=== PATIENT | female | born 1995 | race Caucasian/White ===

== ENCOUNTER 2024-08-03 11:37 | Emergency (ER) | payer OTHER, SELFPAY ==
[2024-08-03] VITALS (11 sets, daily range): BP systolic 107–133; BP diastolic 74–96; PULSE 77–92; RESP 13–24; TEMP 37; O2SAT 97–100
--- NOTE | ~2024-08-03 | XR_ITS ---
Clinical Indication: Chest pain PA and lateral views of the chest: Comparison: None Findings: The lungs are clear, without evidence of focal consolidation or pleural effusion. Cardiome diastinal silhouette is within normal limits. Bones and soft tissues are unremarkable. Impression: Normal chest. Reviewed, dictated and finalized at location . Impression: Normal chest.
--- NOTE | 2024-08-03 11:40 | ECG_ITS ---
Test Date: 2024-08-03 11:52:09 Measurements Intervals [place] Rate: 86 P: 46 LA: 158 QRS: 12 QRSD: 72 T: 27 QT: 362 QTc: 434 Interpretive Statements SINUS RHYTHM MINIMAL Q WAVES- INFERIOR LEADS CONSIDER ANTERIOR INFARCT, AGE INDETERMINATE BASELINE ARTIFACT- I, III, AVR, AVL, AVF, V4-V6 ABNORMAL ECG No previous ECG available for comparison Electronically Signed On 08-03-2024 12:53:14 CDT by Harshal Clark D.O.
--- NOTE | 2024-08-03 13:24 | ED.CHESTPAIN ---
HPI - Chest Pain General Chief Complaint: Chest Pain <Eri Loomis PA-C - Last Filed: 08/03/24 18:55> Stated Complaint: Chest pain-right side through to back <Eri Loomis PA-C - Last Filed: 08/03/24 18:55> Time Seen by Provider: 08/03/24 13:25 <Eri Loomis PA-C - Last Filed: 08/03/24 18:55> Focused HPI: This is a 28 year old female that presents to the ER for right sided chest pain, posterior shoulder pain. Worsened with breathing. Onset this morning when sitting on the cough working. Has been constant since. Reports some shortness of breath. She is not on control, no recent travel or surgery. No recent injuries. GENERAL: Well-appearing, well-nourished, and in no acute distress. HEAD: Normocephalic, atraumatic. CHEST: Clear to auscultation. ?No respiratory distress. HEART: Regular rate and rhythm.? NEURO: ?Alert and oriented x3. Patient screened in triage and initial orders placed.? ?Additional care and disposition to be based upon?diagnostic testing and treatment. <Eri Loomis PA-C - Last Filed: 08/03/24 18:55> Source: patient <Kye Snider MD - Last Filed: 08/03/24 16:13> Mode of arrival: ambulatory <Kye Snider MD - Last Filed: 08/03/24 16:13> History of Present Illness HPI narrative: 28-year-old with a history of type 1 diabetes here with a complains of back pain and chest pain. Patient states that she was sitting on the couch she had a sudden onset of back. Radiated to the front of her chest with mild shortness of breath. She denies any lifting heavy weights or trauma. No history of cough or fever or chills no previous history of CAD. And the time she got to the ER her pain has much improved. <Kye Snider MD - Last Filed: 08/03/24 16:13> MD complaint: chest pain <Kye Snider MD - Last Filed: 08/03/24 16:13> Onset (ago): hour(s) (1) <Kye Snider MD - Last Filed: 08/03/24 16:13> Timing of current episode: constant <Kye Snider MD - Last Filed: 08/03/24 16:13> Onset: during rest <Kye Snider MD - Last Filed: 08/03/24 16:13> Pain location: left chest <Kye Snider MD - Last Filed: 08/03/24 16:13> Pain radiation: right scapula <Kye Snider MD - Last Filed: 08/03/24 16:13> Severity: moderate <Kye Snider MD - Last Filed: 08/03/24 16:13> Quality: aching <Kye Snider MD - Last Filed: 08/03/24 16:13> Relieving factors: nothing <Kye Snider MD - Last Filed: 08/03/24 16:13> Exacerbating factors: nothing <Kye Snider MD - Last Filed: 08/03/24 16:13> Risk Factors Coronary artery disease risk factors: none <Kye Snider MD - Last Filed: 08/03/24 16:13> Related Data Home Medications: Home Medications ?Medication ?Instructions ?Recorded ?Confirmed ?Last Taken ?Type insulin lispro 100 unit/mL 1 sliding scale dose subcut TIDWM 03/13/19 03/13/19 Unknown History subcutaneous solution (Humalog U-100 Insulin) insulin lispro 100 unit/mL 19 unit subcut DAILY 03/13/19 03/13/19 Unknown History subcutaneous solution (Humalog U-100 Insulin) <Eri Loomis PA-C - Last Filed: 08/03/24 18:55> Allergies/Adverse Reactions: Allergies Allergy/AdvReac Type Severity Reaction Status Date / Time codeine Allergy Unknown Swelling Verified 08/03/24 11:39 of the Eye <Eri Loomis PA-C - Last Filed: 08/03/24 18:55> Review of Systems Review of Systems: All systems reviewed & are unremarkable except as noted in HPI and below <Kye Snider MD - Last Filed: 08/03/24 16:13> Constitutional: Constitutional: Reports no additional constitutional complaints <Kye Snider MD - Last Filed: 08/03/24 16:13> Eyes: Eyes: Reports no additional eye complaints <Kye Snider MD - Last Filed: 08/03/24 16:13> ENT: Reports system reviewed and no additional complaints, except as documented <Kye Snider MD - Last Filed: 08/03/24 16:13> Cardiovascular: Cardiovascular: Reports no additional cardiovascular complaints <Kye Snider MD - Last Filed: 08/03/24 16:13> Respiratory: Respiratory: Reports no additional respiratory complaints <Kye Snider MD - Last Filed: 08/03/24 16:13> Gastrointestinal: Gastrointestinal: Reports no additional gastrointestinal complaints <Kye Snider MD - Last Filed: 08/03/24 16:13> Musculoskeletal: Musculoskeletal: Reports no additional musculoskeletal complaints <Kye Snider MD - Last Filed: 08/03/24 16:13> Neurologic: Reports system reviewed and no additional complaints, except as documented <Kye Snider MD - Last Filed: 08/03/24 16:13> Psychiatric: Psychiatric: Reports no additional psychiatric complaints <Kye Snider MD - Last Filed: 08/03/24 16:13> PMFSH Past Medical History Medical History: Medical History DM I (diabetes mellitus, type I) GERD (gastroesophageal reflux disease) <Eri Loomis PA-C - Last Filed: 08/03/24 18:55> Surgical History Surgical History: Surgical History Status post tonsillectomy and adenoidectomy <Eri Loomis PA-C - Last Filed: 08/03/24 18:55> Family History Family History: Family History Mother Hypothyroidism Other Family history of arthritis Family history of cardiovascular disease Family history of hearing loss Family history of malignant neoplasm of urinary bladder Family history of migraine headaches Family history of osteoporosis Family history of thyroid disease Hypertension <Eri Loomis PA-C - Last Filed: 08/03/24 18:55> Social History Social History: Social History Social History: 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 She denies alcohol, tobacco, and drug use. She designates her parents as her surrogate decision makers and she wishes to be a full code. Smoking status: Never smoker Second hand tobacco smoke exposure: No Alcohol intake: current Substance use: never Spiritual care concerns: No Agree to blood products: Yes <Eri Loomis PA-C - Last Filed: 08/03/24 18:55> Exam Narrative: GENERAL: Well-appearing, well-nourished, and in no acute distress. HEAD: Normocephalic, atraumatic. EYES: PERRLA and EOMI. ENT: Nares clear, no rhinorrhea or epistaxis. Mucous membranes moist. NECK: Supple. CHEST: Clear to auscultation. No respiratory distress. HEART: Regular rate and rhythm. No murmur heard. Normal peripheral pulses. ABDOMEN: Soft, nontender, nondistended, normal active bowel sounds. EXTREMITIES: Normal range of motion. No edema. SKIN: Warm, dry, no rash. NEURO: No focal deficits. Alert and oriented x3. PSYCH: Normal mood and affect. <Kye Snider MD - Last Filed: 08/03/24 16:13> Course Course Emergency Course: Patient comfortably resting on the bed with apparent on the bedside. Informed her about the lab work, EKG and chest x-ray findings. Cause of her pain most likely musculoskeletal. Advised her to continue home medication take Tylenol ibuprofen for pain <Kye Snider MD - Last Filed: 08/03/24 16:13> Vital Signs Vital signs: Vital Signs Temperature 98.6 F 08/03/24 11:46 Pulse Rate 92 08/03/24 11:46 Respiratory Rate 24 H 08/03/24 11:46 Blood Pressure 133/96 H 08/03/24 11:46 Pulse Oximetry 99 08/03/24 11:46 Oxygen Delivery Room Air 08/03/24 11:46 Temperature 98.6 F 08/03/24 11:46 Pulse Rate 81 08/03/24 16:01 Respiratory Rate 18 08/03/24 16:01 Blood Pressure 116/80 08/03/24 16:01 Pulse Oximetry 98 08/03/24 15:46 Oxygen Delivery Room Air 08/03/24 13:50 <Eri Loomis PA-C - Last Filed: 08/03/24 18:55> Vital Signs Temperature 98.6 F 08/03/24 11:46 Pulse Rate 92 08/03/24 11:46 Respiratory Rate 24 H 08/03/24 11:46 Blood Pressure 133/96 H 08/03/24 11:46 Pulse Oximetry 99 08/03/24 11:46 Oxygen Delivery Room Air 08/03/24 11:46 Temperature 98.6 F 08/03/24 11:46 Pulse Rate 81 08/03/24 16:01 Respiratory Rate 18 08/03/24 16:01 Blood Pressure 116/80 08/03/24 16:01 Pulse Oximetry 98 08/03/24 15:46 Oxygen Delivery Room Air 08/03/24 13:50 <Kye Snider MD - Last Filed: 08/03/24 16:13> MDM - Chest Pain Differential Diagnosis Differential diagnosis: Likely unstable angina pectoris, atypical chest pain, costochondritis and chest pain <Kye Snider MD - Last Filed: 08/03/24 16:13> Medical Records Data Attestation: I reviewed the patient's medical records. <Kye Snider MD - Last Filed: 08/03/24 16:13> Lab Data Attestation: I reviewed the patient's lab results. <Kye Snider MD - Last Filed: 08/03/24 16:13> Result diagrams: 08/03/24 13:35 08/03/24 13:35 <Eri Loomis PA-C - Last Filed: 08/03/24 18:55> Labs: Lab Results 08/03/24 08/03/24 Range/Units 13:35 14:59 WBC 10.8 H (4.5-10.0) K/mm3 RBC 4.45 (4.2-5.4) M/mm3 Hgb 12.5 (12.0-15.0) g/dL Hct 40.5 (37.0-47.0) % MCV 91.0 (80-100) fl MCH 28.1 (26-34) pg MCHC 30.9 L (32-36) g/dl RDW 13.5 (11.5-14.5) % Plt Count 411 H (150-375) k/mm3 MPV 10.0 (7.4-10.4) fl Immature Gran % (Auto) 0.4 (0-0.5) % Neut % (Auto) 67.4 (45.5-73.1) % Lymph % (Auto) 20.8 (18.3-44.2) % [place] % (Auto) 7.7 (2.6-8.5) % Eos % (Auto) 3.3 (0-4.4) % Baso % (Auto) 0.4 (0.2-1.2) % Lymph # (Auto) 2.24 (0.9-3.2) K/mm3 [place] # (Auto) 0.8 H (0.1-0.6) K/mm3 Eos # (Auto) 0.4 H (0-0.3) K/mm3 Baso # (Auto) 0.0 (0.0-0.1) K/mm3 Abs Immat Gran (auto) 0.04 H (0.00-0.031) K/mm3 Absolute Neuts (auto) 7.3 H (1.3-6.7) K/mm3 Absolute Nucleated RBC 0.000 (0.0-0.012) K/mm3 Nucleated RBC % 0.0 (0.0-0.2) % PT 13.4 (11.1-14.7) Seconds INR 1.0 APTT 28.3 (22.3-36.8) Seconds D-Dimer 0.38 (<0.48) ug/mL Sodium 137 (137-145) mmol/L Potassium 3.9 (3.4-5.0) mmol/L Chloride 105 (98-107) mmol/L Carbon Dioxide 27 (22-30) mmol/L Anion Gap 5 (4-12) mmol/L BUN 9 D (7-17) mg/dL Creatinine 0.78 (0.7-1.0) mg/dL Estim Creat Clear Calc Not Reportable Estimated GFR > 60 (59 - ) Glucose 83 (65-110) mg/dL Calcium 9.0 (8.4-10.2) mg/dL Total Bilirubin 0.4 (0.2-1.3) mg/dL AST 30 (14-36) U/L ALT 27 (6-35) U/L Alkaline Phosphatase 110 (38-126) U/L Troponin I < 0.012 < 0.012 (0.000-0.034) ng/mL Total Protein 8.0 (6.3-8.2) g/dL Albumin 4.2 (3.5-5.1) g/dL Lipase 38 (23-300) U/L <Eri Loomis PA-C - Last Filed: 08/03/24 18:55> Lab Results 08/03/24 08/03/24 Range/Units 13:35 14:59 WBC 10.8 H (4.5-10.0) K/mm3 RBC 4.45 (4.2-5.4) M/mm3 Hgb 12.5 (12.0-15.0) g/dL Hct 40.5 (37.0-47.0) % MCV 91.0 (80-100) fl MCH 28.1 (26-34) pg MCHC 30.9 L (32-36) g/dl RDW 13.5 (11.5-14.5) % Plt Count 411 H (150-375) k/mm3 MPV 10.0 (7.4-10.4) fl Immature Gran % (Auto) 0.4 (0-0.5) % Neut % (Auto) 67.4 (45.5-73.1) % Lymph % (Auto) 20.8 (18.3-44.2) % [place] % (Auto) 7.7 (2.6-8.5) % Eos % (Auto) 3.3 (0-4.4) % Baso % (Auto) 0.4 (0.2-1.2) % Lymph # (Auto) 2.24 (0.9-3.2) K/mm3 [place] # (Auto) 0.8 H (0.1-0.6) K/mm3 Eos # (Auto) 0.4 H (0-0.3) K/mm3 Baso # (Auto) 0.0 (0.0-0.1) K/mm3 Abs Immat Gran (auto) 0.04 H (0.00-0.031) K/mm3 Absolute Neuts (auto) 7.3 H (1.3-6.7) K/mm3 Absolute Nucleated RBC 0.000 (0.0-0.012) K/mm3 Nucleated RBC % 0.0 (0.0-0.2) % PT 13.4 (11.1-14.7) Seconds INR 1.0 APTT 28.3 (22.3-36.8) Seconds D-Dimer 0.38 (<0.48) ug/mL Sodium 137 (137-145) mmol/L Potassium 3.9 (3.4-5.0) mmol/L Chloride 105 (98-107) mmol/L Carbon Dioxide 27 (22-30) mmol/L Anion Gap 5 (4-12) mmol/L BUN 9 D (7-17) mg/dL Creatinine 0.78 (0.7-1.0) mg/dL Estim Creat Clear Calc Not Reportable Estimated GFR > 60 (59 - ) Glucose 83 (65-110) mg/dL Calcium 9.0 (8.4-10.2) mg/dL Total Bilirubin 0.4 (0.2-1.3) mg/dL AST 30 (14-36) U/L ALT 27 (6-35) U/L Alkaline Phosphatase 110 (38-126) U/L Troponin I < 0.012 < 0.012 (0.000-0.034) ng/mL Total Protein 8.0 (6.3-8.2) g/dL Albumin 4.2 (3.5-5.1) g/dL Lipase 38 (23-300) U/L <Kye Snider MD - Last Filed: 08/03/24 16:13> Imaging Data Radiologist's impression: ITS Impressions Chest X-Ray 08/03/24 13:29 Impression: Normal chest. <Kye Snider MD - Last Filed: 08/03/24 16:13> ECG Data EKG #1: ECG completion date: 08/03/24 <Kye Snider MD - Last Filed: 08/03/24 16:13> ECG completion time: 11:52 <Kye Snider MD - Last Filed: 08/03/24 16:13> EKG Interpretation: normal rate (86), sinus rhythm, no ectopy, no ST changes, normal QRS, normal QT and no acute changes <Kye Snider MD - Last Filed: 08/03/24 16:13> Critical Care Time Critical Care Time Critical Care Time: No <Eri Loomis PA-C - Last Filed: 08/03/24 18:55> Discharge Plan Discharge Clinical Impression: Chest pain Qualifiers: Chest pain type: unspecified Qualified Code(s): R07.9 - Chest pain, unspecified <Eri Loomis PA-C - Last Filed: 08/03/24 18:55> Patient Disposition: Home <Eri Loomis PA-C - Last Filed: 08/03/24 18:55> Condition: Stable <Eri Loomis PA-C - Last Filed: 08/03/24 18:55> Instructions: Chest Pain (ED) <Eri Loomis PA-C - Last Filed: 08/03/24 18:55> Additional Instructions: Continue home medication, take Tylenol or Ibuprofen for pain, follow-up with your primary doctor <Eri Loomis PA-C - Last Filed: 08/03/24 18:55> Patient Language: [place] <Eri Loomis PA-C - Last Filed: 08/03/24 18:55> Prescriptions: No Action insulin lispro [Humalog U-100 Insulin] 100 unit/mL solution 19 unit subcut DAILY Rx Instructions: 19 UNITS BASAL RATE PER INSULIN PUMP insulin lispro [Humalog U-100 Insulin] 100 unit/mL solution 1 sliding scale dose subcut TIDWM Rx Instructions: 1 Unit per carb with meals <Eri Loomis PA-C - Last Filed: 08/03/24 18:55> Follow-up/Referrals: Papi,MD Cathryn [Non-Staff] - <Eri Loomis PA-C - Last Filed: 08/03/24 18:55> Time of Disposition: 16:12 <Eri Loomis PA-C - Last Filed: 08/03/24 18:55> 16:12 <Kye Snider MD - Last Filed: 08/03/24 16:13>
--- OUTSIDE RECORDS SUMMARY | 2024-08-03 13:35 | XMS_ITS | Continuity of Care Document ---
Author Organization [facility] Address [address] [place] [address] [place] [address] Phone Care Team Providers Care Branch Director Name Role Phone Chang OD, Mart Unavailable Unavailable Procedures Procedure Date Eye Exam, New Patient Refraction SV Poly Carb Sph +/- 7.12 To +/- 20 D Ju Vision Svcs Frames Purchases Lens-Index 1.54-1.79 Glass Advance Directives Directive Yes / No Effective Date File Name No Information Encounters Encounter Description Practice Location Reason(s) For Visit Diagnoses Date Provider Providers Copied on Encounter [facility], [address] [place] [address] [address], [place], [place], [id number], [place] tel:[phone] [facility] No Information 0 Chang OD Mart. [address] [facility] [address] [facility] , [address], [place], [address], [place]. tel:[phone] [facility], [address] [place] [address] [address], [place], [place], [id number], [place] tel:[phone] [facility] No Information [address] [facility] . [address], [address], [place], [place], [id number], [place]. tel:[phone] Referring Provider: Mart Chang OD Natanael, [address], [place], [address]. tel:[phone] Provider: Liam Baer, [address] [facility], [place], [address]. tel:[phone] Family History Family Member Type Diagnosis Age At Onset No Information Payers Payer name Insurance type Covered libertarian ID Authormagaly bishop(s) [facility] [id number] Social History Type Description Quantity Date Captured Comments Sex Female Smoking Status No Information Chief Complaint And Reason For Visit No Information Reason For Referral Reason For Referral No Information History Of Present Illness Encounter Date Complaint History Of Prese nt Illness No Information Functional Status Date Functional Assessmen t No Information Instructions Date Instruction Additional Infor mation No Information Assessments Type Assessment Date No Information Patient Care Teams Name Effective Dates (start - stop) Status Members No Information
--- OUTSIDE RECORDS SUMMARY | 2024-08-03 13:35 | XMS_ITS | Clinical Summary ---
Author Organization [facility] Address [facility] [place] [address] Care Team Providers Care Photographic Plate Maker Name Role Phone Noemi Gilbert DO Primary Care Provider [phone] Allergies Active Allergy Reactions Criticality Noted Date Comments Jai Hanna 10/31/2023 Social History Tobacco Use Types Packs/Day Years Used Date Smoking Tobacco: Never Assessed Comments Unknown Sex and Gender Information Value Date Recorded Sex Assigned at Not on file Legal Sex Female 9:18 PM CDT Gender Identity Not on file Sexual Orientation Not on file Last Filed Vital Signs Vital Sign Reading Time Taken Comments Blood Pressure 116/80 10/31/2023 11:18 PM CDT Pulse 94 10/31/2023 11:18 PM CDT Temperature 36.9 C (98.5 F) 10/31/2023 9:26 PM CDT Respiratory Rate 16 10/31/2023 11:18 PM CDT Oxygen Saturation 100% 10/31/2023 11:18 PM CDT Inhaled Oxygen Concentration - - Weight 72.7 kg (160 lb 4.4 oz) 10/31/2023 9:26 P M CDT Height 149.9 cm (4' 11 ) 10/31/2023 9:26 PM CDT Body Mass Index 32.37 10/31/2023 9:26 PM CDT Plan of Treatment Health Maintenance Due Date Last Done Comments Annual Physical 2000 Hepatitis C 08/16/2015 DTaP, Tdap and Td Vaccines (7 - Td or Tdap) 08/30/2018 08/30/2008, 07/28/2002, 02/28/1999, Additional history exists COVID-19 Vaccine ( season) 2023 07/22/2020 Cervical Cancer Screening Pap Smear (Age 21 to 29) Every 3 Years 04/03/2026 04/03/2023 Cervical Cancer Screening 04/03/2026 Hepatitis B Vaccines Completed 08/30/2008, 05/19/1998, 1997, Additional history exists HPV Vaccines Completed 04/13/2013, 11/27, 10/02/2011 Meningococcal Vaccine Completed 05/14/2014, 012 Meningococcal B Vaccine Aged Out No l onger eligible based on patient's age to complete this topic Pneumococcal Vaccine: Pediatrics (0 to 5 Years) and At-Risk Patients (6 to 64 Years) Aged Out No longer eligible based on patient's age to complete this topic RSV Immunizations Under 20 Months Aged Out No longer eligible based on patient's age to complete this topic Insurance [facility] Care Teams Photographic Plate Maker Relationship Specialty Start Date End Date Noemi Gilbert DO [address] [address] PCP - General INTERNAL MEDICINE 10/31/23
--- OUTSIDE RECORDS SUMMARY | 2024-08-03 13:35 | XMS_ITS | Referral Summary ---
Author Organization [facility] C Address [address] [place] [address] Care Team Providers Care Abrasive Grader Name Role Phone No, Physician Primary Care Provider Cathryn Turpin MD Unavailable [phone] Encounters Date Type Department Care Team Description 07/07/2024 1:00 PM CDT Office Visit [facility] Endocrinology Metabolism and Lipid [address] [facility] 2nd Floor [address] [place] [phone] Noemi Gilbert DO Other hyperlipidemia (Primary Dx); Type 1 diabetes mellitus without complication (HCC); Insulin pump in place; Proteinuria, unspecified type; PCOS (polycystic ovarian syndrome); Goiter 07/05/2024 Results Follow-Up [facility] Endocrinology Metabolism and Lipid [address] [facility] 2nd Floor [address] [place] [phone] Noemi Gilbert DO 07/02/2024 Orders Only [facility] Endocrinology Metabolism and Lipid [address] [place] [phone] Noemi Alba RMA Type 1 diabetes mellitus without complication (HCC) (Primary Dx); Other hyperlipidemia; PCOS (polycystic ovarian syndrome); Proteinuria, unspecified type from Last 3 Months Allergies Active Allergy Reactions Criticality Noted Date Comments Codeine Hives Medium 10/31/2023 Medications acetone, urine, test (acetone, urine, test) strip Test if BS is greater than 200 100 strip 11 9 Active ONETOUCH VERIO strip 0 9 Active glucagon (glucagon) 1 mg kit 6 Active blood-glucose transmitter (Dexcom G6 Transmitter) device Use as directed to check blood glucose; change every 90d 1 each 1 3 Active blood-glucose sensor (Dexcom G7 Sensor) device Active insulin glargine (LANTUS) 100 unit/mL (3 mL) pen for injection Use in case of pump failure, MDD 30 units 15 mL 1 4 Active insulin lispro (HumaLOG) 100 unit/mL vial for injection INJECT 60 UNITS UNDER THE SKIN DAILY VIA INSULIN PUMP 50 mL 1 4 Active metFORMIN XR (GLUCOPHAGE XR) 500 mg 24 hr tablet Take 2 tablets (1,000 mg total) by mouth daily 60 tablet 6 5 07/09/19 26 Active PNV no.95/ferrous fum/folic ac ( ORAL) Take by mouth 07/08/19 25 Discontinu ed(Therapy completed) aspirin 81 mg enteric coated tablet Take 1 tablet (81 mg total) by mouth daily 30 tablet 11 4 07/08/19 25 Discontinu ed(Therapy completed) Active Problems Problem Noted Date Diagnosed Date Missed with d emise before 20 completed weeks of gestation 03/13/2024 Missed 03/09/2024 Influenza vaccination declined 01/21/2024 Anxiety 04/03/2023 Overview (01/31/2024): Current regimen: History of anxiety, specifically related to poor glycemic control as well as car rides, currently well managed not on medications Counseling 01/30/2024: Anxiety disorders affect 1 in 5 patients and can cause significant functional impairment. Patients with under treated anxiety have a higher risk of depression. They also have a higher risk of , low weight, and behavioral challenges in offspring. Regular follow-up with a mental health provider is recommended throughout and . Plan: [] Monitor mood every visit PCOS (polycystic ovarian syndrome) 04/03/2023 Assessment & Plan (01/14/2024 11:04 AM CDT): >>ASSESSMENT AND PLAN FOR IRREGULAR PERIODS/MENSTRUAL CYCLES WRITTEN ON 04/03/2023 6:41 PM BY EMILY CASTELLANOS MD Change period tracker application to YONIS and input all data since 2020 when she came off OCP. Check labs as average cycle length is 35 days. RTO to discuss labs and discuss timing of intercourse to achieve . May need clomid for ovulation induction. Assessment & Plan (01/14/2024 11:04 AM CDT): >>ASSESSMENT AND PLAN FOR IRREGULAR PERIODS/MENSTRUAL CYCLES WRITTEN ON 05/30/2023 8:39 PM BY EMILY CASTELLANOS MD She is here to discuss lab results. I have not received lab results. States that she had them drawn day after our last visit. CW to obtain labs from [email or web address]. RTO for [employer] ARTISTIC DIRECTOR US and FU with me. Discussed need for medroxyprogesterone to induce withdrawal bleed. Discussed possible need for ovulation induction with clomid. Assessment & Plan (01/14/2024 11:04 AM CDT): >>ASSESSMENT AND PLAN FOR PCOS (POLYCYSTIC OVARIAN SYNDROME) WRITTEN ON 06/24/2023 7:57 PM BY EMILY CASTELLANOS MD See above. >>ASSESSMENT AND PLAN FOR IRREGULAR PERIODS/MENSTRUAL CYCLES WRITTEN ON 06/24/2023 7:54 PM BY EMILY CASTELLANOS MD Discussed labs and history consistent with PCOS. It was explained that the diagnosis need only 2 of following 3 symptoms: infrequent menses, polycystic ovaries on US and clinical signs of excess androgens. Currently taking medroxyprogesterone 10 mg po daily for 10 days. Withdrawal bleed should begin within one week of the completion of the medication. We discussed the frequent need for ovulation induction to aid in conception, and briefly reviewed some options to treat irregular or menstrual cycles, and protect the endometrial lining including as needed progesterone challenge for greater than 3 months with no menses, regulating forms of hormonal contraception, Depo-Provera and progesterone releasing intrauterine devices. For now she wants to hold on and focus on weight loss to improve fertility outcomes. Diabetes mellitus type 1 12/26/2006 Overview (03/05/2024): History Diagnosed age 11 History of DKA in teenage years Last hemoglobin A1C: 7.1% (11/05/23), repeat ordered Pre- regimen: Metformin 500 q day. Tandem insulin pump Pre- pump settings: Time Basal Rate ISF ICR BG Target Insulin Duration 0000 0.90 35 1:5 100 0600 0.925 35 1:5 100 1100 0.90 35 1:4 100 1600 0.90 45 1:3 100 1800 0.80 55 1:5 100 Pre- TDD of insulin: 40 units Pre- weight: 160 lb CGM/pump login [employer] Single Sign On (Rev[employer]ut) Username/email: [email or web address] Password: [email or web address] Current regimen: 02/26/2024 Met with DE 02/09 and she is in sleep mode 19/11 Time Basal Rate ISF ICR BG Target Duration 0000 0.90 30 1:5 110 4 0600 0.925 30 4.5 110 4 1100 0.925 30 3.5 > 3 110 4 1600 0.925 35 1:3 110 4 1800 0.925 45 1:5 110 4 Counseled 02/18 Plan - Physician adjusting insulin dosage: Endocrinology, however patient desires MFM to manage. Plan for remote pump monitoring [x] Counseling performed [x] Diabetes education, has meeting with diabetes education for nutrition in one week [x] Recommend weekly review of BG/insulin data to adjust insulin dosing, plan for remote monitoring by MFM [x] Glucagon prescribed [x] Referral to ophthalmology for comprehensive eye exam [x] Baseline CMP, UPC, -ordered 01/30; wnl on 01/30 [x] A1c q Trimester, ordered [x] First trimester TSH, ordered by director of therapy services [] ASA starting at 12 weeks gestation, discussed, rx sent [x] Baseline EKG: Reviewed by Dr. Wisdom- nothing further to do---- consider maternal TTE [] Early anatomy in late first trimester ordered [] Specialized anatomy ultrasound at 18-20 weeks ordered [] echocardiogram at 20-22 weeks ordered [] Serial growth scans starting at 24 weeks [] Twice weekly testing starting at 32 weeks [] insulin plan by 32 weeks [] Delivery at 39 0/7-39 6/7 (36 0/7 to 38 6/7 with vascular complications or poorly controlled) Assessment & Plan (01/21/2024 12:18 PM CDT): Patient reports struggling with blood sugar levels since becoming , with frequent highs and lows. -Consult with Maternal Medicine (MFM) for management during . -I will reach out to director of therapy services to request sooner appointment for Eufemia, but I have also requested her to contact office for further management of blood sugar levels during . -Check blood sugar levels regularly and adjust insulin doses as needed. Resolved Problems Problem Noted Date Diagnosed Date Resolved Date Obesity affecting , antepartum 01/30/2024 04/02/2024 Overview (01/31/2024): Pre- BMI: 33 Counseling 01/30/2024: Obesity in (BMI >30) is associated with increased risks. Maternal risks include preeclampsia, gestational diabetes and higher risk of section due to labor abnormalities. risks include anomalies, growth abnormalities (FGR and macrosomia) and stillbirth. Recommended weight gain is a total of 11-20 lbs, with 1-4 lbs in the 1st trimester and 0.5 lb/week in the 2nd and 3rd trimesters. Plan: [] Initiate aspirin 81 mg at 12 weeks for preeclampsia risk reduction [] Specialized anatomic survey at 20 weeks [] Consider growth ultrasounds every 4 weeks at 28 weeks [] 3rd trimester anesthesia consultation if BMI >/=50 [] Weekly testing at 34 weeks (BMI >/=40) and 37 weeks (BMI 35.0-39.9) Supervision of high-risk pre gnancy, first trimester 01/14/2024 04/02/2024 Overview (03/05/2024): [x] Full MFM Care; [x] Red Team JACE as of 02/05- email sent for the global 02/05 Referring Provider: Emily Castellanos [phone] [x] or Medicare Insurance [x] Dating Criteria: 7w4d US, YOGI 09/14/24 not consistent with LMP [x] Labs: Rh [O+], Ab [negative], Rubella [immune], HIV [non-reactive], HepBSAg [non-reactive], RPR [non-reactive], Hep C [non-reactive], Varicella [not done], GC/CT [not done], recommend completion of new OB lans [] Aneuploidy: too early for screen, recommend NIPT, patient plans to present in 4 weeks for NIPT- plan to draw 03/06 [] Carrier Screening: plan to draw 03/06 [x] CBC/Hgb: 11.9/38.1/plt 423 [] Early 1hr GTT (not indicated) [x] UCx: 01/21/24: 50,000-<100,000 colonies/mL Escherichia Coli, s/p treatment. Recommend JACE in 3 weeks [x] Pap: 04/03/23: NILM [] Flu Shot (Dec-Mar): declined [] COVID [x] LD ASA at 12 weeks, discussed. Patient to start after 12 weeks [] EPDS [ ]; PNBHS referral (if indicated) 2nd Tri Labs: [] Anatomy ultrasound: [] CBC/1hr gtt at 24-28wks: [] Tdap (27-36wks): [] Rhogam at 28 wks (if Rh neg): 3rd Tri Labs: [] CBC/HIV/RPR/T&S: [] GBS: [] GC/CT (if indicated): [] testing: [] RSV Counseling [] MOD: [] Place of delivery: [] Last clinic visit SVE: [] IOL start agent: [] Epidural: [] Blood Products [] Consents signed: [] Stop ASA [] MOC: [] Method of feeding: [] Receipt And Report Clerk: [] PP Depression Discussed: Assessment & Plan (02/05/2024 8:56 PM CDT): >>ASSESSMENT AND PLAN FOR POSITIVE TEST WRITTEN ON 01/14/2024 11:06 AM BY EMILY CASTELLANOS MD Patient presents with anxiety regarding the viability of her early due to a history of irregular periods and family history of miscarriages. Ultrasound shows a gestational sac but no yolk sac or pole, suggesting an earlier gestation than initially thought. No bleeding or cramping reported. -Draw blood for quantitative hCG, progesterone, and CBC today and repeat in two days to assess for appropriate rise in hCG. -Schedule follow-up ultrasound in one-two weeks to assess for interval growth and development of yolk sac and pole. -Provide patient with early information and reassurance regarding the commonality of early uncertainty and miscarriages. Encounter for other procreative management 04/03/2023 01/14/2024 Pain in joint of left shoulder 05/11/2020 01/14/2024 Subperiosteal hematoma 05/19/201304/03 Immunizations Immunization Administration Dates Next Due DTaP 07/28/2002, 9,02/03/1998,12/03,1997 HPV, Quadrivalent 04/13/2013,12/10/2011,10/02/19 12 Hep B, Adolescent or Pediatric 9,05/19/1998,1997,09/05,1997 HiB 02/28/1999, 8,1997,10/11 IPV 02/28/1999 Influenza, Quadrivalent, Spl it, Intramuscular 02/28/2020 Influenza, Quadrivalent, Spl it, Preservative Free, Intramuscular 03/23/2015,03/22/2014 Influenza, Trivalent, IM (MDV) 03/06/2012 Influenza, Trivalent, Preser vative Free, Intramuscular 02/26/2007 Influenza, Unspecified 01/28/2023,2012,03/06/2012,01/[address] (J&J) SARS-CoV-2 Vaccination 07/22/2020 Meningococcal MCV4P (Menactra) 05/14/2014,2011 OPV 1997,1997 PPD TEST 11/20/2020 Tdap 08/30/2008 Varicella 11/22/2008,08/30/2008 Social History Tobacco Use Types Packs/Day Years Used Date Smoking Tobacco: Never Passive Smoke Exposure: Never Smokeless Tobacco: Never PHQ-2 Answer Date Recorded PHQ-2 Total Score (If total score is 3 or more points, staff should administer the PHQ-9) 0 04/03/2023 Hunger Vital Sign Answer Date Recorded Within the past 12 months, y ou worried that your food would run out before you got the money to buy more. Never true 04/02/20 24 Within the past 12 months, t he food you bought just didn't last and you didn't have money to get more. Never true 04/02/2024 Personal Safety Answer Date Recorded Have you ever been in or are you currently in a harmful physical or emotional relationship or is someone making you feel afraid or unsafe? Denies 03/13/2024 Comments No Sex and Gender Information Value Date Recorded Sex Assigned at Not on file Legal Sex Female 2:10 PM DYNAMICS AX TECHNICAL ARCHITECT Gender Identity Female 05/17/2020 7:16 PM DYNAMICS AX TECHNICAL ARCHITECT Sexual Orientation Straight 05/17/2020 7: 16 PM DYNAMICS AX TECHNICAL ARCHITECT Occupation Industry Job Start Date Job End Date Works for [employer] Not on file Not on file Not on file Last Filed Vital Signs Vital Sign Reading Time Taken Comments Blood Pressure 128/87 07/07/2024 12:56 PM CDT Pulse 98 07/07/2024 12:56 PM CDT Temperature 36.8 C (98.3 F) 07/07/2024 12:56 PM CDT Respiratory Rate 18 04/02/2024 8:42 AM DYNAMICS AX TECHNICAL ARCHITECT Oxygen Saturation 98% 07/07/2024 12: 56 PM CDT Inhaled Oxygen Concentration - - Weight 78.8 kg (173 lb 12.8 oz) 025 12:56 PM CDT Height 149.9 cm (4' 11 ) 07/07/2024 12: 56 PM CDT Body Mass Index 35.1 07/07/2024 12:56 PM CDT Plan of Treatment Not on file Procedures Procedure Name Priority Date/Time Associated Diagnosis Comments TISSUE TRANSGLUTAMINASE, IGA Routine 07/03/2024 2:32 PM DYNAMICS AX TECHNICAL ARCHITECT ENDOMYSIAL ANTIBODY, IGA TITER Routine 07/03/2024 2:32 PM DYNAMICS AX TECHNICAL ARCHITECT IGA Routine 07/03/2024 2:32 PM DYNAMICS AX TECHNICAL ARCHITECT HEMOGLOBIN A1C Routine 07/03/2024 2:32 PM DYNAMICS AX TECHNICAL ARCHITECT Type 1 diabetes mellitus without complication (HCC) ALBUMIN CREATININE RATIO, URINE Routine 07/03/2024 2:32 PM DYNAMICS AX TECHNICAL ARCHITECT Type 1 diabetes mellitus without complication (HCC) Proteinuria, unspecified type COMPREHENSIVE METABOLIC PANEL Routine 07/03/2024 2:32 PM DYNAMICS AX TECHNICAL ARCHITECT Type 1 diabetes mellitus without complication (HCC) LIPID PANEL Routine 07/03/2024 2:32 PM DYNAMICS AX TECHNICAL ARCHITECT Other hyperlipidemia TSH Routine 07/03/2024 2:32 PM DYNAMICS AX TECHNICAL ARCHITECT Type 1 diabetes mellitus without complication (HCC) T4, FREE Routine 07/03/2024 2:32 PM DYNAMICS AX TECHNICAL ARCHITECT Type 1 diabetes mellitus without complication (HCC) VITAMIN B12 Routine 07/03/2024 2:32 PM DYNAMICS AX TECHNICAL ARCHITECT PCOS (polycystic ovarian syndrome) HEPATITIS C ANTIBODY Routine 01/21/2024 2:54 PM CDT Positive test PAP WITH REFLEX TO HIGH RISK HPV Routine 04/03/2023 4:28 PM DYNAMICS AX TECHNICAL ARCHITECT Routine Papanicolaou smear from Last 3 Months or Most Recently Relevant to Health Maintenance Results * Endomysial antibody, IgA titer (07/03/2024 2:32 PM DYNAMICS AX TECHNICAL ARCHITECT) Endomysial ab screen IgA w/reflex to titer NEGATIVE NEGATIVE [facility] 07/03/2024 2:32 PM DYNAMICS AX TECHNICAL ARCHITECT 07/03/2024 2:33 PM DYNAMICS AX TECHNICAL ARCHITECT Narrative [facility] - 07/08/2024 5:41 AM CDT FASTING:NO FASTING: NO us Noemi Gilbert DO LAB BLOOD ORDERABLES Fi nal Result [facility] [address] [place] [address] * Tissue transglutaminase IgA (TGG-IgA Ab) (07/03/2024 2:32 PM DYNAMICS AX TECHNICAL ARCHITECT) Tissue transglutaminase ab, IgA <1.0 U/mL [facility]phanieAmanda Valente Comment: Value Interpretation ----- <15.0 Antibody not detected > or = 15.0 Antibody detected 07/03/2024 2:32 PM DYNAMICS AX TECHNICAL ARCHITECT 07/03/2024 2:33 PM DYNAMICS AX TECHNICAL ARCHITECT Narrative [facility] - 07/08/2024 5:41 AM CDT FASTING:NO FASTING: NO Zappedyjaime Rutledgeme DO LAB BLOOD ORDERABLES Fi nal Result Performing Organization Address [facility] de Phone Number FusebillRobert Valente [address] [place] [address] * (ABNORMAL) Albumin Creatinine Ratio, Urine (07/03/2024 2:32 PM DYNAMICS AX TECHNICAL ARCHITECT) Pathologist [facility] Creatinine, ur 114 20 - 275 mg/dL [facility] Microalbumin, ur 7.4 See Note: mg/dL [facility] Comment: Reference Range: Reference Range Not established Microalbumin/creat ratio 65(H) <30 mg/g creat [facility] Comment: The ADA defines abnormalities in albumin excretion as follows: Albuminuria Category Result (mg/g creatinine) Normal to Mildly increased <30 Moderately increased 30-299 Severely increased > OR = 300 The ADA recommends that at least two of three specimens collected within a 3-6 month period be abnormal before considering a patient to be within a diagnostic category. Urine 07/03/2024 2:32 PM DYNAMICS AX TECHNICAL ARCHITECT 07/03/2024 2:33 PM DYNAMICS AX TECHNICAL ARCHITECT Narrative [facility] - 07/08/2024 5:41 AM CDT FASTING:NO FASTING: NO Zappedye Vladimir DO LAB URINE ORDERABLES Fi nal Result Performing Organization Address City/[facility]/ZIP Co de Phone Number [facility] [address] [facility] [place] [address] * TSH (07/03/2024 2:32 PM DYNAMICS AX TECHNICAL ARCHITECT) [facility] TSH 1.49 mIU/L [facility] Comment: Reference Range > or = 20 Years 0.40-4.50 Ranges First trimester 0.26-2.66 Second trimester 0.55-2.73 Third trimester 0.43-2.91 Blood 07/03/2024 2:32 PM DYNAMICS AX TECHNICAL ARCHITECT 07/03/2024 2:33 PM DYNAMICS AX TECHNICAL ARCHITECT Narrative [facility] - 07/08/2024 5:41 AM CDT FASTING:NO FASTING: NO Purfreshharme LAB BLOOD ORDERABLES Fi nal Result Performing Organization Address [facility] Co de Phone Number [facility] [address] [place] [address] * T4, free (07/03/2024 2:32 PM DYNAMICS AX TECHNICAL ARCHITECT) [facility] Free T4 1.3 0.8 - 1.8 ng/dL [facility] Blood 07/03/2024 2:32 PM DYNAMICS AX TECHNICAL ARCHITECT 07/03/2024 2:33 PM DYNAMICS AX TECHNICAL ARCHITECT Narrative [facility] - 07/08/2024 5:41 AM CDT FASTING:NO FASTING: NO Zappedye Vladimir DO LAB BLOOD ORDERABLES Fi nal Result Performing Organization Address [facility] Co de Phone Number [employer] [facility] [address] [place] [address] * (ABNORMAL) Hemoglobin A1c (07/03/2024 2:32 PM DYNAMICS AX TECHNICAL ARCHITECT) [facility] Hgb A1C 6.6(H) <5.7 % of total Hgb [facility] Comment: For someone without known diabetes, a hemoglobin A1c value of 6.5% or greater indicates that they may have diabetes and this should be confirmed with a follow-up test. For someone with known diabetes, a value <7% indicates that their diabetes is well controlled and a value greater than or equal to 7% indicates suboptimal control. A1c targets should be individualized based on duration of diabetes, age, comorbid conditions, and other considerations. Currently, no consensus exists regarding use of hemoglobin A1c for diagnosis of diabetes for children. Blood 07/03/2024 2:32 PM DYNAMICS AX TECHNICAL ARCHITECT 07/03/2024 2:33 PM DYNAMICS AX TECHNICAL ARCHITECT Narrative [facility] - 07/08/2024 5:41 AM CDT FASTING:NO FASTING: NO Noemi Gilbert DO LAB BLOOD ORDERABLES Fi nal Result [facility] [address] [place] [address] * IgA (07/03/2024 2:32 PM DYNAMICS AX TECHNICAL ARCHITECT) Immunoglobulin A 289 47 - 310 mg/dL [facility] 07/03/2024 2:32 PM DYNAMICS AX TECHNICAL ARCHITECT 07/03/2024 2:33 PM DYNAMICS AX TECHNICAL ARCHITECT Narrative [facility] - 07/08/2024 5:41 AM CDT FASTING:NO FASTING: NO Noemi Gilbert DO LAB BLOOD ORDERABLES Fi nal Result Performing Organization Address [facility] Co de Phone Number [email or web address] [address] [place] [address] * Vitamin B12 (07/03/2024 2:32 PM DYNAMICS AX TECHNICAL ARCHITECT) Pathologist [facility] Vitamin B12 853 200 - 1,100 pg/mL [facility] Blood 07/03/2024 2:32 PM DYNAMICS AX TECHNICAL ARCHITECT 07/03/2024 2:33 PM DYNAMICS AX TECHNICAL ARCHITECT Narrative [facility] - 07/08/2024 5:41 AM CDT FASTING:NO FASTING: NO Noemi Rutledgeme DO LAB BLOOD ORDERABLES Fi nal Result Performing Organization Address [facility] de Phone Number [email or web address] [address] [place] [address] * Lipid panel (07/03/2024 2:32 PM DYNAMICS AX TECHNICAL ARCHITECT) Pathologist [facility] Cholesterol 174 <200 mg/dL [facility] HDL 82 > OR = 50 mg/dL [facility]IORikki [facility] Triglycerides 47 <150 mg/dL Mikayla Lang LDL 79 mg/dL (calc) Mikayla [facility]ki Lang Comment: Reference range: <100 Desirable range <100 mg/dL for primary prevention; <70 mg/dL for patients with CHD or diabetic patients with > or = 2 CHD risk factors. LDL-C is now calculated using the Derrick calculation, which is a validated novel method providing better accuracy than the Friedewald equation in the estimation of LDL-C. Parth SS et al. LIAM. 2013;310(19): 3802-1395 (http://education.[employer]/faq/YPJ434) Chol/HDL ratio 2.1 <5.0 (calc) Mikayla Lang Non-HDL, (LDL+VLDL) 92 <130 mg/dL (calc) Mikayla Lang Comment: For patients with diabetes plus 1 major ASCVD risk factor, treating to a non-HDL-C goal of <100 mg/dL (LDL-C of <70 mg/dL) is considered a therapeutic option. Blood 07/03/2024 2:32 PM DYNAMICS AX TECHNICAL ARCHITECT 07/03/2024 2:33 PM DYNAMICS AX TECHNICAL ARCHITECT Narrative [facility] - 07/08/2024 5:41 AM CDT FASTING:NO FASTING: NO us Noemi Gilbert DO LAB BLOOD ORDERABLES Fi nal Result MIKAYLA [facility] [address] [place] [address] * Comprehensive metabolic panel (07/03/2024 2:32 PM DYNAMICS AX TECHNICAL ARCHITECT) [facility] Glucose 72 65 - 139 mg/dL Mikayla Lang Comment: Non-fasting reference interval BUN 17 7 - 25 mg/dL Mikayla Lang Creatinine 0.78 0.50 - 0.96 mg/dL Mikayla Lang eGFR 107 > OR = 60 mL/min/1.7 3m2 Mikayla [employer]ikki Lang BUN/creat ratio SEE NOTE: 6 - 22 (calc) Mikayla Lang Comment: Not Reported: BUN and Creatinine are within reference range. Sodium 140 135 - 146 mmol/L Mikayla [employer]Rikki Lang Potassium, pl 3.8 3.5 - 5.3 mmol/L [employer] Chloride 103 98 - 110 mmol/L [employer] Lang CO2 32 20 - 32 mmol/L [facility]Mia Lang Calcium 9.5 8.6 - 10.2 mg/dL Mikayla [employer]Mia Lang Protein, sr 7.1 6.1 - 8.1 g/dL Mikayla [employer]Mia Lang Albumin 4.0 3.6 - 5.1 g/dL [employer] Lang GLOBULIN 3.1 1.9 - 3.7 g/dL (calc) [facility] Lang Alb/glob ratio 1.3 1.0 - 2.5 (calc) [facility] Lang Bilirubin, total 0.3 0.2 - 1.2 mg/dL [employer] loretta Lang Alk phos 97 31 - 125 U/L [facility] loretta Lang AST 23 10 - 30 U/L [employer]ia Lang ALT (SGPT) 22 6 - 29 U/L [employer] loretta Lang Blood 07/03/2024 2:32 PM DYNAMICS AX TECHNICAL ARCHITECT 07/03/2024 2:33 PM DYNAMICS AX TECHNICAL ARCHITECT [facility] - 07/08/2024 5:41 AM CDT FASTING:NO FASTING: NO Noemi Gilbert DO LAB BLOOD ORDERABLES Fi nal Result [facility] [address] [place] [address] * Hepatitis C antibody Blood (01/21/2024 2:54 PM CDT) Hep C Ab Nonreactive Nonreactive Comment: Interpretive Data Nonreactive: Antibodies to HCV not detected. Does NOT exclude the possibility of recent exposure to HCV. Equivocal: Equivocal for HCV antibodies. Supplemental molecular testing will be automatically performed to determine infection status in accordance with current CDC screening recommendations. Reactive: Positive for HCV antibodies. This may represent current or past HCV infection. Supplemental molecular testing will be automatically performed to determine current infection status in accordance with current CDC screening recommendations. Interpretive data was last revised on 2019. Blood 01/21/2024 2:54 PM CDT 01/21/2024 2:54 PM CDT us Emily Castellanos MD LAB MICROBIOLOGY - [facility] ORDERABLES Final Result [facility] [address] Department [place] [address] * Pap with reflex to High Risk HPV and Genotyping (Cytology Component) (04/03/2023 4:28 PM DYNAMICS AX TECHNICAL ARCHITECT) Thin prep (Pap test) 04/03/2023 4:28 PM DYNAMICS AX TECHNICAL ARCHITECT 04/08/2023 9:40 AM DYNAMICS AX TECHNICAL ARCHITECT Narrative PATHOLOGY [facility] - 04/09/2023 3:55 PM DYNAMICS AX TECHNICAL ARCHITECT EPIC results best viewed via link to PDF [place] [id number] [facility], [place], [place] [address] Tele: Fina Mcpherson MD - Computer Forensic Examiner CYTOLOGY REPORT Note to Patients: This report may contain a detailed description of human tissue sent by a health care provider to the laboratory for pathologic evaluation. The content of this report is essential for diagnosis and may provide important critical findings. This information may be unfamiliar to patients to review without a medical professional present. It is advised that the patient review this report in the presence of a health care provider who can answer questions and explain the details. Patient Name: ROYCE ALEJANDRA Address: [address] [place] [address] Gender: F : 1995 (Age: 27) Service: Location: N : [id number] [facility] #: [id number] Patient Type: [facility] SPECIMEN Taken: 04/03/2023 Reported: 04/09/2023 Physician(s): Emily Castellanos M.D. FINAL DIAGNOSIS: SOURCE OF SPECIMEN - ThinPrep Pap w/ reflex HPV: STATEMENT OF ADEQUACY Source: Cervical/Endocervical - Satisfactory for interpretation - Endocervical /Transformation Zone component present - Case screened using computer assisted imaging technology GENERAL CATEGORIZATION: - Negative for intraepithelial lesion or malignancy xbb/04/09/2023 15:55RAMIREZ Brown (ASCP) Report Reviewed and Electronically Signed By RAMIREZ Brown (ASCP)Clerical Data Follow A; G0145 CLINICAL DIAGNOSIS AND HISTORY Last Menstrual Period: 02/26/23 REPORT IMAGES AND/OR SCANNED DOCUMENTS ONLY VIEWABLE IN PDF FORMAT The Pap test is a screening test used to aid in the detection of cervical cancer and its precursors. It should not be the sole means by which malignant and premalignant lesions are diagnosed. Both false negative and false positive results may occur. It also has poor sensitivity for the detection of endometrial lesions and should not be used to evaluate suspected endometrial abnormalities. For these reasons it is most important to obtain Pap tests at regular intervals, as recommended by your physician or nurse practitioner. us Emily Castellanos MD LAB CYTOLOGY ORDERABL ES Final Result PATHOLOGY [facility] Laboratory Receiving [address] [place], [place] [id number] from Last 3 Months or Most Recently Relevant to Health Maintenance Insurance [facility] CLAIMS [facility] CLAIMS Advance Directives For more information, please contact: [phone] * Full Code (Latest Code Status on File) Date Activated Date Inactivated Comments 03/13/2024 5:55 AM 03/13/2024 4:50 PM Full CPR i n case of cardiopulmonary arrest Care Teams Abrasive Grader Relationship Specialty Start Date End Date No, Physician PCP - General 01/10/23 Cathryn Turpin MD [address] [address] 01/10/23
--- OUTSIDE RECORDS SUMMARY | 2024-08-03 13:35 | XMS_ITS | Encounter Summary ---
Author Organization [facility] Facility Care Team Providers Care Verify Rep Name Role Phone Cathryn Turpin MD Primary Care Provider [phone] No, Physician Primary Care Provider [phone] Cathryn Turpin MD Unavailable [phone] Encounter Details Date Type Department Care Team (Latest Contact Info) Description 01/14/2018 Orders Only [facility]CON[facility] Provider, MD Ange [address] [place] [address] Social History Tobacco Use Types Packs/Day Years Used Date Smoking Tobacco: Never Assessed Comments Unknown Sex and Gender Information Value Date Recorded Sex Assigned at Not on file Legal Sex Female 2:10 PM RE ETCHER Gender Identity Female 05/17/2020 7:16 PM RE ETCHER Sexual Orientation Straight 05/17/2020 7: 16 PM RE ETCHER documented as of this encounter Plan of Treatment Not on file documented as of this encounter Procedures Procedure Name Priority Date/Time Associated Diagnosis Comments PROCEDURE - RESULT 01/14/2018 12 :00 AM CDT documented in this encounter Results * PROCEDURE - RESULT (01/14/2018 12:00 AM CDT) Narrative 01/14/2018 12:00 AM CDT Ordered by an unspecified provider. Historical Provider Final Res ult documented in this encounter Visit Diagnoses Not on filedocumented in this encounter Additional Health Concerns Infection Onset Date Last Indicated Resolved Time MRSA Comment:x1 04/08/2018 04/06/2018 12/14/2020 5:00 AM C DT documented as of this encounter Care Teams Verify Rep Relationship Specialty Start Date End Date Cathryn Turpin MD [address] [address] PCP - General 10/22/16 01/09/23 No, Physician PCP - General 01/10/23 Cathryn Turpin MD [address] [address] 01/10/23 documented as of this encounter
--- OUTSIDE RECORDS SUMMARY | 2024-08-03 13:35 | XMS_ITS | Clinical Summary ---
Author Organization [facility] Address [address] [place] [address] Care Team Providers Care Delivery Rn Name Role Phone No, Physician Primary Care Provider [phone] Cathryn Turpin MD Unavailable [phone] Allergies Active Allergy Reactions Criticality Noted Date [...] WRITTEN ON 04/03/2023 6:41 PM BY EMILY NOEL MD Change period tracker application to YONIS [...] WRITTEN ON 05/30/2023 8:39 PM BY EMILY NOEL MD She is here to discuss lab results. I have not received lab results. States that she had them drawn day after our last visit. CW to obtain labs from [employer] [facility]. RTO for DSP ENGINEER US and FU with me. Discussed need for medroxyprogesterone to induce withdrawal bleed. Discussed possible need for ovulation induction with clomid. Assessment & Plan (01/14/2024 11:04 AM CDT): >>ASSESSMENT AND PLAN FOR PCOS (POLYCYSTIC OVARIAN SYNDROME) WRITTEN ON 06/24/2023 7:57 PM BY EMILY NOEL MD See above. >>ASSESSMENT AND PLAN FOR IRREGULAR PERIODS/MENSTRUAL CYCLES WRITTEN ON 06/24/2023 7:54 PM BY EMILY NOEL MD Discussed labs and history consistent with [...] units Pre- weight: 160 lb CGM/pump login AutoESL Single Sign On (Clicktree) Username/email: [email or web address] Password: [email or web address] Current regimen: 02/26/2024 Met with LEONIE 02/09 and she is in sleep mode [...] ordered [x] First trimester TSH, ordered by hospital medical biller [] ASA starting at 12 weeks gestation, [...] during . -I will reach out to hospital medical biller to request sooner appointment for Eufemia, but [...] for the global 02/05 Referring Provider: Emily Noel [phone] [x] or Medicare Insurance [x] Dating Criteria: [...] [] MOC: [] Method of feeding: [] Metal Fence Erector: [] PP Depression Discussed: Assessment & Plan (02/05/2024 8:56 PM CDT): >>ASSESSMENT AND PLAN FOR POSITIVE TEST WRITTEN ON 01/14/2024 11:06 AM BY EMILY NOEL MD Patient presents with anxiety regarding the [...] left shoulder 05/11/2020 01/14/2024 Subperiosteal hematoma 05/19/201304/03 Encounters Date Type Department Care Team Description 07/07/2024 1:00 PM CDT Office Visit [facility] Endocrinology Metabolism and Lipid [address] [place] [address] Noemi Gilbert DO Other hyperlipidemia (Primary Dx); Type 1 diabetes mellitus without complication (HCC); Insulin pump in place; Proteinuria, unspecified type; PCOS (polycystic ovarian syndrome); Goiter 07/05/2024 Results Follow-Up [facility] Endocrinology Metabolism and Lipid [address] [facility] [address] [place] [address] Noemi Gilbert DO 07/02/2024 Orders Only [facility] Endocrinology Metabolism and Lipid [address] [facility] [address] [place] [address] Noemi Alba Natanael Type 1 diabetes mellitus without complication (HCC) (Primary Dx); Other hyperlipidemia; PCOS (polycystic ovarian syndrome); Proteinuria, unspecified type from Last 3 Months Immunizations Immunization Administration Dates Next Due DTaP 07/28/2002, 9,02/03/1998,12/03,1997 HPV, Quadrivalent 04/13/2013,12/10/2011,10/02/19 12 Hep B, Adolescent or Pediatric 9,05/19/1998,1997,09/05,1997 HiB 02/28/1999, 8,1997,10/11 IPV 02/28/1999 Influenza, Quadrivalent, Spl it, Intramuscular 02/28/2020 Influenza, Quadrivalent, Spl it, Preservative Free, Intramuscular 03/23/2015,03/22/2014 Influenza, Trivalent, IM (MDV) 03/06/2012 Influenza, Trivalent, Preser vative Free, Intramuscular 02/26/2007 Influenza, Unspecified 01/28/2023,2012,03/06/2012,01/25 Zipfit (J&J) SARS-CoV-2 Vaccination 07/22/2020 Meningococcal MCV4P (Menactra) 05/14/2014,2011 OPV 1995,1997 PPD TEST 11/20/2020 Tdap 08/30/2008 Varicella 11/22/2008,08/30/2008 Surgical History Surgery Date Site/Laterality Comments TONSILLECTOMY 04/29/2000 - 04/28/2001 KNEE SURGERY 04/29/2017 - 04/28/2018 Right Medical History Medical History Date Comments Subperiosteal hematoma 05/19/2013 Diabetes mellitus type 1 (HCC) 12/26/2006 Anxiety 04/03/2023 PCOS (polycystic ovarian syndrome) 04/03/2023 Family History Medical History Relation Name Comments No Known Problems Brother No Known Problems Father Scoliosis Mother Thyroid disease Mother Breast cancer Neg Hx Cervical cancer Neg Hx Colon cancer Neg Hx Ovarian cancer Neg Hx Uterine cancer Neg Hx Relation Name Status Comments Brother Alive Father Alive Mother Alive Social History Tobacco Use Types Packs/Day Years [...] on file Legal Sex Female 2:10 PM STEEL FLOOR PAN PLACING SUPERVISOR Gender Identity Female 05/17/2020 7:16 PM STEEL FLOOR PAN PLACING SUPERVISOR Sexual Orientation Straight 05/17/2020 7: 16 PM STEEL FLOOR PAN PLACING SUPERVISOR Occupation Industry Job Start Date Job End Date Works for [employer] Not on file Not on file Not on file Obstetrics History Para Term AB IAB SAB Ectopic Multiple Livin g Live Births 1 0 0 0 0 0 0 0 0 0 0 Date Outcome GA Total Labor Labor/2nd/3rd Weight Sex Type Anes PTL Twila A1 A5 Name Clin Last Filed Vital Signs Vital Sign Reading Time Taken Comments Blood Pressure 128/87 07/07/2024 12:56 PM CDT Pulse 98 07/07/2024 12:56 PM CDT Temperature 36.8 C (98.3 F) 07/07/2024 12:56 PM CDT Respiratory Rate 18 04/02/2024 8:42 AM STEEL FLOOR PAN PLACING SUPERVISOR Oxygen Saturation 98% 07/07/2024 12: 56 PM CDT Inhaled Oxygen Concentration - - Weight 78.8 kg (173 lb 12.8 oz) 025 12:56 PM CDT Height 149.9 cm (4' 11 ) 07/07/2024 12: 56 PM CDT Body Mass Index 35.1 07/07/2024 12:56 PM CDT Plan of Treatment Health Maintenance Due Date Last Done Comments Foot Exam 1995 Dilated Eye Exam 08/16/2007 Pneumococcal vaccine <65 (1 of 2 - PCV) 2016 DTaP/Tdap/Td Vaccine (7 - Td or Tdap) 08/30/2018 08/30/2008, 07/28/2002, 02/28/1999, Additional history exists Covid-19 Vaccine ( - 2023-2 5 season) 2023 07/22/2020 Cervical Cancer Screening 04/03/2024 04/03/2023 Depression Screening 04/03/2024 04/03/2023 Regular Well Visit/Exam 18-64 04/03/2024 04/03/2023 Hemoglobin A1C 01/03/2025 07/03/2024, 07/0 12/2023, 11/16/2022, Additional history exists Albumin Creatinine Ratio, Urine 07/03/2025 07/03/2024, 12/14/2019, 04/10/2019 Lipid Panel 07/03/2025 07/03/2024, 12/14/2019 TSH Level 07/03/2025 07/03/2024, 05/30, 12/14/2019, Additional history exists eGFR 07/03/2025 07/03/2024, 02/10/2024 Hepatitis B Screening Completed 08/30/2008 , 05/19/1998, 1997, Additional history exists Varicella Vaccines Completed 11/22/2008, 08/30/2008 HPV Vaccines Completed 04/13/2013, 11/27, 10/02/2011 Hepatitis C Screening Completed 01/21/2024 Influenza Vaccine Completed 02/11/2024, , 02/28/2020, Additional history exists Procedures Procedure Name Priority Date/Time Associated Diagnosis Comments TISSUE TRANSGLUTAMINASE, IGA Routine 07/03/2024 2:32 PM STEEL FLOOR PAN PLACING SUPERVISOR ENDOMYSIAL ANTIBODY, IGA TITER Routine 07/03/2024 2:32 PM STEEL FLOOR PAN PLACING SUPERVISOR IGA Routine 07/03/2024 2:32 PM STEEL FLOOR PAN PLACING SUPERVISOR HEMOGLOBIN A1C Routine 07/03/2024 2:32 PM STEEL FLOOR PAN PLACING SUPERVISOR Type 1 diabetes mellitus without complication (HCC) ALBUMIN CREATININE RATIO, URINE Routine 07/03/2024 2:32 PM STEEL FLOOR PAN PLACING SUPERVISOR Type 1 diabetes mellitus without complication (HCC) Proteinuria, unspecified type COMPREHENSIVE METABOLIC PANEL Routine 07/03/2024 2:32 PM STEEL FLOOR PAN PLACING SUPERVISOR Type 1 diabetes mellitus without complication (HCC) LIPID PANEL Routine 07/03/2024 2:32 PM STEEL FLOOR PAN PLACING SUPERVISOR Other hyperlipidemia TSH Routine 07/03/2024 2:32 PM STEEL FLOOR PAN PLACING SUPERVISOR Type 1 diabetes mellitus without complication (HCC) T4, FREE Routine 07/03/2024 2:32 PM STEEL FLOOR PAN PLACING SUPERVISOR Type 1 diabetes mellitus without complication (HCC) VITAMIN B12 Routine 07/03/2024 2:32 PM STEEL FLOOR PAN PLACING SUPERVISOR PCOS (polycystic ovarian syndrome) HEPATITIS C ANTIBODY Routine 01/21/2024 2:54 PM CDT Positive test PAP WITH REFLEX TO HIGH RISK HPV Routine 04/03/2023 4:28 PM STEEL FLOOR PAN PLACING SUPERVISOR Routine Papanicolaou smear from Last 3 Months or Most Recently Relevant to Health Maintenance Results * Endomysial antibody, IgA titer (07/03/2024 2:32 PM STEEL FLOOR PAN PLACING SUPERVISOR) Endomysial ab screen IgA w/reflex to titer NEGATIVE NEGATIVE [facility] 07/03/2024 2:32 PM STEEL FLOOR PAN PLACING SUPERVISOR 07/03/2024 2:33 PM STEEL FLOOR PAN PLACING SUPERVISOR Narrative [facility] - 07/08/2024 5:41 AM CDT FASTING:NO FASTING: NO Noemi Gilbert DO LAB BLOOD ORDERABLES Fi nal Result Performing Organization Address [facility] Co de Phone Number [facility] [address] [place] [address] * Tissue transglutaminase IgA (TGG-IgA Ab) (07/03/2024 2:32 PM STEEL FLOOR PAN PLACING SUPERVISOR) Pathologist [facility] Tissue transglutaminase ab, IgA <1.0 U/mL [facility] Comment: Value Interpretation ----- <15.0 Antibody not detected > or = 15.0 Antibody detected 07/03/2024 2:32 PM STEEL FLOOR PAN PLACING SUPERVISOR 07/03/2024 2:33 PM STEEL FLOOR PAN PLACING SUPERVISOR Narrative [facility] - 07/08/2024 5:41 AM CDT FASTING:NO FASTING: NO Noemi Gilbert LAB BLOOD ORDERABLES nal Result Performing Organization Address [facility] de Phone Number [facility] [address] [place] [address] * (ABNORMAL) Albumin Creatinine Ratio, Urine (07/03/2024 2:32 PM STEEL FLOOR PAN PLACING SUPERVISOR) [facility] Creatinine, ur 114 20 - 275 mg/dL [...] a diagnostic category. Urine 07/03/2024 2:32 PM STEEL FLOOR PAN PLACING SUPERVISOR 07/03/2024 2:33 PM STEEL FLOOR PAN PLACING SUPERVISOR Narrative [facility] - 07/08/2024 5:41 AM CDT FASTING:NO FASTING: NO Wireless [employer] Travee LAB URINE ORDERABLES Fi nal Result Performing Organization Address [facility] Co de Phone Number [facility] [address] [place] [address] * TSH (07/03/2024 2:32 PM STEEL FLOOR PAN PLACING SUPERVISOR) [facility] TSH 1.49 mIU/L [facility] Comment: Reference Range > or = 20 Years 0.40-4.50 Ranges First trimester 0.26-2.66 Second trimester 0.55-2.73 Third trimester 0.43-2.91 Blood 07/03/2024 2:32 PM STEEL FLOOR PAN PLACING SUPERVISOR 07/03/2024 2:33 PM STEEL FLOOR PAN PLACING SUPERVISOR Narrative [facility] - 07/08/2024 5:41 AM CDT FASTING:NO FASTING: NO Noemi Sveta Travee LAB BLOOD ORDERABLES Fi nal Result Performing Organization Address [facility] de Phone Number [facility] [address] [place] [address] * T4, free (07/03/2024 2:32 PM STEEL FLOOR PAN PLACING SUPERVISOR) [facility] Free T4 1.3 0.8 - 1.8 ng/dL [facility] Blood 07/03/2024 2:32 PM STEEL FLOOR PAN PLACING SUPERVISOR 07/03/2024 2:33 PM STEEL FLOOR PAN PLACING SUPERVISOR Narrative [facility] - 07/08/2024 5:41 AM CDT FASTING:NO FASTING: NO Noemi Zbirdme [place] (Circle[employer]) LAB BLOOD ORDERABLES Fi nal Result Performing Organization Address [facility] Co de Phone Number [facility] [address] [place] [address] * (ABNORMAL) Hemoglobin A1c (07/03/2024 2:32 PM STEEL FLOOR PAN PLACING SUPERVISOR) [facility] Hgb A1C 6.6(H) <5.7 % of total Hgb [facility] Comment: For someone without known diabetes, a [...] diabetes for children. Blood 07/03/2024 2:32 PM STEEL FLOOR PAN PLACING SUPERVISOR 07/03/2024 2:33 PM STEEL FLOOR PAN PLACING SUPERVISOR Narrative [facility] - 07/08/2024 5:41 AM CDT FASTING:NO FASTING: NO Noemi Sveta Vladimir DO LAB BLOOD ORDERABLES Fi nal Result [facility] [address] [place] [address] * IgA (07/03/2024 2:32 PM STEEL FLOOR PAN PLACING SUPERVISOR) Immunoglobulin A 289 47 - 310 mg/dL [facility] 07/03/2024 2:32 PM STEEL FLOOR PAN PLACING SUPERVISOR 07/03/2024 2:33 PM STEEL FLOOR PAN PLACING SUPERVISOR Narrative [facility] - 07/08/2024 5:41 AM CDT FASTING:NO FASTING: NO Noemi Gilbert DO LAB BLOOD ORDERABLES Fi nal Result Performing Organization Address City/[facility]/ZIP Co de Phone Number [facility] [address] [place] [address] * Vitamin B12 (07/03/2024 2:32 PM STEEL FLOOR PAN PLACING SUPERVISOR) Vitamin B12 853 200 - 1,100 pg/mL [facility] Blood 07/03/2024 2:32 PM STEEL FLOOR PAN PLACING SUPERVISOR 07/03/2024 2:33 PM STEEL FLOOR PAN PLACING SUPERVISOR Narrative [facility] - 07/08/2024 5:41 AM CDT FASTING:NO FASTING: NO Noemi Svetajaime Rutledgeme DO LAB BLOOD ORDERABLES Fi nal Result [facility] [address] [place] [address] * Lipid panel (07/03/2024 2:32 PM STEEL FLOOR PAN PLACING SUPERVISOR) Cholesterol 174 <200 mg/dL Mikayla Lang HDL 82 > OR = 50 mg/dL Mikayla AncestryRikki Lang Triglycerides 47 <150 mg/dL Mikayla Lang LDL 79 mg/dL (calc) Mikayla Lang Comment: Reference range: <100 Desirable range <100 mg/dL for primary prevention; <70 mg/dL for patients with CHD or diabetic patients with > or = 2 CHD risk factors. LDL-C is now calculated using the Derrick calculation, which is a validated novel method providing better accuracy than the Friedewald equation in the estimation of LDL-C. Parth PATTERSON et al. LIAM. 2013;310(19): 1056-1659 (http://education.[employer]/faq/BEA747) Chol/HDL ratio 2.1 <5.0 (calc) Mikayla Lang Non-HDL, (LDL+VLDL) 92 <130 mg/dL (calc) Mikayla AncestryRikki Lang Comment: For patients with diabetes plus 1 major ASCVD risk factor, treating to a non-HDL-C goal of <100 mg/dL (LDL-C of <70 mg/dL) is considered a therapeutic option. Blood 07/03/2024 2:32 PM STEEL FLOOR PAN PLACING SUPERVISOR 07/03/2024 2:33 PM STEEL FLOOR PAN PLACING SUPERVISOR Narrative [facility] - 07/08/2024 5:41 AM CDT FASTING:NO FASTING: NO us Noemi Gilbert DO LAB BLOOD ORDERABLES Fi nal Result MIKAYLA [facility]ifts[facility] Lang [address] [place] [address] * Comprehensive metabolic panel (07/03/2024 2:32 PM STEEL FLOOR PAN PLACING SUPERVISOR) Glucose 72 65 - 139 mg/dL Mikayla Lang Comment: Non-fasting reference interval BUN 17 7 - 25 mg/dL Mikayla Lang Creatinine 0.78 0.50 - 0.96 mg/dL Mikayla Lang eGFR 107 > OR = 60 mL/min/1.7 3m2 [facility] BUN/creat ratio SEE NOTE: 6 - 22 (calc) Mikayla Ancestry-Mia Lang Comment: Not Reported: BUN and Creatinine are within reference range. Sodium 140 135 - 146 mmol/L Mikayla Ancestry-Mia Lang Potassium, pl 3.8 3.5 - 5.3 mmol/L Mikayla [facility]estry-Mia Lang Chloride 103 98 - 110 mmol/L [facility] CO2 32 20 - 32 mmol/L [facility] Calcium 9.5 8.6 - 10.2 mg/dL Mikayla Ancestry-Mia Lang Protein, sr 7.1 6.1 - 8.1 g/dL [facility] Albumin 4.0 3.6 - 5.1 g/dL Mikayla Ancestry-Mia Lang GLOBULIN 3.1 1.9 - 3.7 g/dL (calc) Mikayla Rutledge-Mia Lang Alb/glob ratio 1.3 1.0 - 2.5 (calc) DemibooksMia Lang Bilirubin, total 0.3 0.2 - 1.2 mg/dL Mikayla Canary CalendarMia Lang Alk phos 97 31 - 125 U/L Mikayla Ancestry-Mia Lang AST 23 10 - 30 U/L DemibooksiMa Lang ALT (SGPT) 22 6 - 29 U/L DemibooksMia Lang Blood 07/03/2024 2:32 PM STEEL FLOOR PAN PLACING SUPERVISOR 07/03/2024 2:33 PM STEEL FLOOR PAN PLACING SUPERVISOR Narrative [facility] - 07/08/2024 5:41 AM CDT FASTING:NO FASTING: NO us Noemi Gilbert DO LAB BLOOD ORDERABLES Fi nal Result MIKAYLA Marinelli [facility] [address] [place] [address] * Hepatitis C antibody Blood (01/21/2024 2:54 [...] 2:54 PM CDT 01/21/2024 2:54 PM CDT Emily Noel MD LAB MICROBIOLOGY - [facility] ORDERABLES Final Result [facility] [address] Department [place] [address] * Pap with reflex to High Risk HPV and Genotyping (Cytology Component) (04/03/2023 4:28 PM STEEL FLOOR PAN PLACING SUPERVISOR) Thin prep (Pap test) 04/03/2023 4:28 PM STEEL FLOOR PAN PLACING SUPERVISOR 04/08/2023 9:40 AM STEEL FLOOR PAN PLACING SUPERVISOR Narrative PATHOLOGY [facility] - 04/09/2023 3:55 PM STEEL FLOOR PAN PLACING SUPERVISOR EPIC results best viewed via link to PDF [id number] [place], [place] [address] Tele: Fina Mcpherson MD - Instrument Assembly Supervisor CYTOLOGY REPORT Note to Patients: This report [...] and explain the details. Patient Name: ROYCE GREER Address: [address] [place] [address] Gender: F : 1995 (Age: 27) Service: Location: [facility] #: [id number] Patient Type: [facility] SPECIMEN Taken: 04/03/2023 Reported: 04/09/2023 Physician(s): Emily Noel M.D. FINAL DIAGNOSIS: SOURCE OF SPECIMEN - ThinPrep Pap w/ reflex HPV: STATEMENT OF ADEQUACY Source: Cervical/Endocervical - Satisfactory for interpretation - Endocervical /Transformation Zone component present - Case screened using computer assisted imaging technology GENERAL CATEGORIZATION: - Negative for intraepithelial lesion or malignancy xbb/04/09/2023 15:55RAMIREZ Brown (ASCP) Report Reviewed and Electronically Signed By RAIMREZ Brown (ASCP)Clerical Data Follow A; G0145 CLINICAL [...] recommended by your physician or nurse practitioner. Emily Noel MD LAB CYTOLOGY ORDERABL ES Final Result [facility] Laboratory Receiving [address] [place], [place] [id number] from Last 3 Months or Most Recently Relevant to Health Maintenance Insurance [facility] CLAIMS [facility] CLAIMS Advance Directives For more information, please contact: [phone] * Full Code (Latest Code Status on File) Date Activated Date Inactivated Comments 03/13/2024 5:55 AM 03/13/2024 4:50 PM Full CPR i n case of cardiopulmonary arrest Care Teams Delivery Rn Relationship Specialty Start Date End Date No, Physician PCP - General 01/10/23 Cathryn Turpin MD [address] [facility] [address] [place] [address] 01/10/23
--- OUTSIDE RECORDS SUMMARY | 2024-08-03 13:35 | XMS_ITS | Encounter Summary ---
Author Organization [facility] Address [address] [place] [address] Phone Care Team Providers Care Regulatory Technician Name Role Phone No, Physician Primary Care Provider [phone] Cathryn Turpin MD Unavailable [phone] Encounter Details Date Type Department Care Team (Late st Contact Info) Description 07/05/2024 Results Follow-Up [facility] Endocrinology Metabolism and Lipid [address] [facility] 2nd Floor [address] [place] [address] Noemi Gilbert DO [address] [facility] [address] [place], [place] [id number] Social History Tobacco Use Types Packs/Day Years Used Date Smoking Tobacco: Never Smokeless Tobacco: Never PHQ-2 Answer Date [...] on file Legal Sex Female 2:10 PM DIRECTOR OF EXHIBIT DEVELOPMENT Gender Identity Female 05/17/2020 7:16 PM DIRECTOR OF EXHIBIT DEVELOPMENT Sexual Orientation Straight 05/17/2020 7: 16 PM DIRECTOR OF EXHIBIT DEVELOPMENT Occupation Industry Job Start Date Job End Date Works for [employer] Not on file Not on file Not on file documented as of this encounter Plan of Treatment Not on file documented as of this encounter Visit Diagnoses Not on filedocumented in this encounter Care Teams Regulatory Technician Relationship Specialty Start Date End Date No, Physician PCP - General 01/10/23 Cathryn Turpin MD [address] [address] 01/10/23 documented as of this encounter
--- OUTSIDE RECORDS SUMMARY | 2024-08-03 13:35 | XMS_ITS | Encounter Summary ---
Author Organization [facility] Facility Care Team Providers Care Director Internal Control Name Role Phone Cathryn Turpin MD Primary Care Provider [phone] No, Physician Primary Care Provider [phone] Cathryn Turpin MD Unavailable [phone] Encounter Details Date Type Department Care Team (Latest Contact Info) Description 04/08/2018 Orders Only [facility] CLINCONV ProviderAnge MD [address] [place] [address] Social History Tobacco Use Types Packs/Day Years Used Date Smoking Tobacco: Never Assessed Comments Unknown Sex and Gender Information Value Date Recorded Sex Assigned at Not on file Legal Sex Female 2:10 PM MEDICAL RESIDENT Gender Identity Female 05/17/2020 7:16 PM MEDICAL RESIDENT Sexual Orientation Straight 05/17/2020 7: 16 PM MEDICAL RESIDENT documented as of this encounter Plan of Treatment Not on file documented as of this encounter Procedures Procedure Name Priority Date/Time Associated Diagnosis Comments PROCEDURE - RESULT 04/11/2018 12 :00 AM MEDICAL RESIDENT PROCEDURE - RESULT 04/08/2018 12 :00 AM MEDICAL RESIDENT documented in this encounter Results * PROCEDURE - RESULT (04/11/2018 12:00 AM MEDICAL RESIDENT) Narrative 04/11/2018 12:00 AM MEDICAL RESIDENT Ordered by an unspecified provider. us Historical Provider Final Res ult * PROCEDURE - RESULT (04/08/2018 12:00 AM MEDICAL RESIDENT) Narrative 04/08/2018 12:00 AM MEDICAL RESIDENT Ordered by an unspecified provider. us Historical Provider Final Res ult documented in this encounter Visit Diagnoses Not on filedocumented in this encounter Additional Health Concerns Infection Onset Date Last Indicated Resolved Time MRSA Comment:x1 04/08/2018 04/06/2018 12/14/2020 5:00 AM C DT documented as of this encounter Care Teams Director Internal Control Relationship Specialty Start Date End Date Cathryn Turpin MD [address] [facility] [address] [place] [address] PCP - General 10/22/16 01/09/23 No, Physician PCP - General 01/10/23 Cathryn Turpin MD [address] [facility] 2 [place] [address] 01/10/23 documented as of this encounter
[2024-08-03 13:41] LABS: Basophils Percent Auto 0.4 % (0.2-1.2); Eosinophils Absolute Auto 0.4 K/mm3 (0-0.3); Eosinophils Percent Auto 3.3 % (0-4.4); Hematocrit 40.5 % (37.0-47.0); Hemoglobin 12.5 g/dL (12.0-15.0); Immature Granulocyte Absolute 0.04 K/mm3 (0.00-0.031); Immature Granulocyte Percent A 0.4 % (0-0.5); Lymphocytes Absolute Auto 2.24 K/mm3 (0.9-3.2); Lymphocytes Percent Auto 20.8 % (18.3-44.2); Mean Corpuscular HGB Conc 30.9 g/dl (32-36); Mean Corpuscular Hemoglobin 28.1 pg (26-34); Monocytes Absolute Auto 0.8 K/mm3 (0.1-0.6); Monocytes Percent Auto 7.7 % (2.6-8.5); Neutrophils Absolute Auto 7.3 K/mm3 (1.3-6.7); Neutrophils Percent Auto 67.4 % (45.5-73.1); Platelet Count Result 411 k/mm3 (150-375); Red Blood Count 4.45 M/mm3 (4.2-5.4); Red Cell Distribution Width 13.5 % (11.5-14.5); White Blood Count 10.8 K/mm3 (4.5-10.0)
[2024-08-03 13:59] LABS: Alanine Aminotransferase 27 U/L (6-35); Albumin Level 4.2 g/dL (3.5-5.1); Alkaline Phosphatase 110 U/L (38-126); Anion Gap 5 mmol/L (4-12); Aspartate Amino Transferase 30 U/L (14-36); Bilirubin,Total 0.4 mg/dL (0.2-1.3); Blood Urea Nitrogen 9 mg/dL (7-17); Carbon Dioxide 27 mmol/L (22-30); Chloride 105 mmol/L (98-107); Estimated Glomerular Filt Rate > 60; Glucose 83 mg/dL (65-110); Lipase 38 U/L (23-300); Potassium 3.9 mmol/L (3.4-5.0); Prothrombin Time 13.4 Seconds (11.1-14.7); Sodium 137 mmol/L (137-145)
[2024-08-03 14:00] LABS: Partial Thromboplastin Time 28.3 Seconds (22.3-36.8)
[2024-08-03 14:11] LABS: Troponin I < 0.012 ng/mL (0.000-0.034)
[2024-08-03 14:42] LABS: D Dimer 0.38 ug/mL (<0.48)
[2024-08-03 15:26] LABS: Troponin I < 0.012 ng/mL (0.000-0.034)
--- OUTSIDE RECORDS SUMMARY | 2024-08-03 16:23 | XMS_ITS | Encounter Summary ---
Author Organization [facility] Facility Care Team Providers Care Printed Circuit Board Assembler Name Role Phone Cathryn Turpin MD Primary Care Provider [phone] No, Physician Primary Care Provider [phone] Cathryn Turpin MD Unavailable [phone] Encounter Details Date Type Department Care Team (Latest Contact Info) Description 04/08/2018 Orders Only [facility] CLINCONV ProviderAnge MD [address] [place] [address] Social History Tobacco Use Types Packs/Day Years Used Date Smoking Tobacco: Never Assessed Comments Unknown Sex and Gender Information Value Date Recorded Sex Assigned at Not on file Legal Sex Female 2:10 PM VENEER JOINTER Gender Identity Female 05/17/2020 7:16 PM VENEER JOINTER Sexual Orientation Straight 05/17/2020 7: 16 PM VENEER JOINTER documented as of this encounter Plan of Treatment Not on file documented as of this encounter Procedures Procedure Name Priority Date/Time Associated Diagnosis Comments PROCEDURE - RESULT 04/11/2018 12 :00 AM VENEER JOINTER PROCEDURE - RESULT 04/08/2018 12 :00 AM VENEER JOINTER documented in this encounter Results * PROCEDURE - RESULT (04/11/2018 12:00 AM VENEER JOINTER) Narrative 04/11/2018 12:00 AM VENEER JOINTER Ordered by an unspecified provider. us Historical Provider Final Res ult * PROCEDURE - RESULT (04/08/2018 12:00 AM VENEER JOINTER) Narrative 04/08/2018 12:00 AM VENEER JOINTER Ordered by an unspecified provider. us Historical Provider Final Res ult documented in this encounter Visit Diagnoses Not on filedocumented in this encounter Additional Health Concerns Infection Onset Date Last Indicated Resolved Time MRSA Comment:x1 04/08/2018 04/06/2018 12/14/2020 5:00 AM C DT documented as of this encounter Care Teams Printed Circuit Board Assembler Relationship Specialty Start Date End Date Cathryn Turpin MD [address] [facility] [place] [address] PCP - General 10/22/16 01/09/23 No, Physician PCP - General 01/10/23 Cathryn Turpin MD [address] [facility] [address] [place] [address] 01/10/23 documented as of this encounter
--- OUTSIDE RECORDS SUMMARY | 2024-08-03 16:23 | XMS_ITS | Encounter Summary ---
Author Organization [facility] Address [address] [place] [address] Phone Care Team Providers Care Cuff Slitter Name Role Phone No, Physician Primary Care Provider [phone] Cathryn Turpin MD Unavailable Encounter Details Date Type Department Care Team (Late st Contact Info) Description 07/05/2024 Results Follow-Up [facility] Endocrinology Metabolism and Lipid [address] [facility] 2nd Floor [address] [place] [address] Noemi Gilbert DO [address] [facility] [address] [place], [place] [id number] Social History Tobacco Use Types Packs/Day Years [...] on file Legal Sex Female 2:10 PM SHIFTMAN Gender Identity Female 05/17/2020 7:16 PM SHIFTMAN Sexual Orientation Straight 05/17/2020 7: 16 PM SHIFTMAN Occupation Industry Job Start Date Job End Date Works for [employer] Not on file Not on file Not on file documented as of this encounter Plan of Treatment Not on file documented as of this encounter Visit Diagnoses Not on filedocumented in this encounter Care Teams Cuff Slitter Relationship Specialty Start Date End Date No, Physician PCP - General 01/10/23 Cathryn Turpin MD [address] [address] 01/10/23 documented as of this encounter
--- OUTSIDE RECORDS SUMMARY | 2024-08-03 16:23 | XMS_ITS | Referral Summary ---
Author Organization [facility] Address [address] [facility] [place] [address] Care Team Providers Care Ocular Care Aide Name Role Phone No, Physician Primary Care Provider [phone] Cathryn Turpin MD Unavailable [phone] Encounters Date Type Department Care Team Description 07/07/2024 1:00 PM CDT Office Visit [facility] Endocrinology Metabolism and Lipid [address] [facility] 2nd Floor [address] [place] [address] Noemi Gilbert DO Other hyperlipidemia (Primary Dx); Type 1 diabetes mellitus without complication (HCC); Insulin pump in place; Proteinuria, unspecified type; PCOS (polycystic ovarian syndrome); Goiter 07/05/2024 Results Follow-Up [facility] Endocrinology Metabolism and Lipid [address] [facility] 2nd Floor [address] [place] [address] Noemi Gilbert DO 07/02/2024 Orders Only [facility] Endocrinology Metabolism and Lipid [address] Floor [address] [place] [address] Noemi Alba RMA Type 1 diabetes mellitus [...] last visit. CW to obtain labs from 5[facility]uan. RTO for POTATO CHIP COOKER MACHINE US and FU with me. Discussed need [...] units Pre- weight: 160 lb CGM/pump login [employer] Single Sign On ([employer]) Username/email: [email or web address] Password: [email or web address]! Current regimen: 02/26/2024 Met with [place] 02/09 [...] ordered [x] First trimester TSH, ordered by welfare director [] ASA starting at 12 weeks gestation, [...] during . -I will reach out to welfare director to request sooner appointment for Eufemia, but [...] the global 02/05 Referring Provider: Emily Castellanos [phone] [x] or Medicare Insurance [x] Dating Criteria: [...] [] MOC: [] Method of feeding: [] Clinical Services Manager: [] PP Depression Discussed: Assessment & Plan [...] vative Free, Intramuscular 02/26/2007 Influenza, Unspecified 01/28/2023,2012,03/06/2012,01/25 Genomic Expression (J&J) SARS-CoV-2 Vaccination 07/22/2020 Meningococcal MCV4P (Menactra) [...] on file Legal Sex Female 2:10 PM TRADE MARK ATTORNEY Gender Identity Female 05/17/2020 7:16 PM TRADE MARK ATTORNEY Sexual Orientation Straight 05/17/2020 7: 16 PM TRADE MARK ATTORNEY Occupation Industry Job Start Date Job End Date Works for [employer] Not on file Not on file Not on file Last Filed Vital Signs Vital Sign Reading Time Taken Comments Blood Pressure 128/87 07/07/2024 12:56 PM CDT Pulse 98 07/07/2024 12:56 PM CDT Temperature 36.8 C (98.3 F) 07/07/2024 12:56 PM CDT Respiratory Rate 18 04/02/2024 8:42 AM TRADE MARK ATTORNEY Oxygen Saturation 98% 07/07/2024 12: 56 PM [...] TISSUE TRANSGLUTAMINASE, IGA Routine 07/03/2024 2:32 PM TRADE MARK ATTORNEY ENDOMYSIAL ANTIBODY, IGA TITER Routine 07/03/2024 2:32 PM TRADE MARK ATTORNEY IGA Routine 07/03/2024 2:32 PM TRADE MARK ATTORNEY HEMOGLOBIN A1C Routine 07/03/2024 2:32 PM TRADE MARK ATTORNEY Type 1 diabetes mellitus without complication (HCC) ALBUMIN CREATININE RATIO, URINE Routine 07/03/2024 2:32 PM TRADE MARK ATTORNEY Type 1 diabetes mellitus without complication (HCC) Proteinuria, unspecified type COMPREHENSIVE METABOLIC PANEL Routine 07/03/2024 2:32 PM TRADE MARK ATTORNEY Type 1 diabetes mellitus without complication (HCC) LIPID PANEL Routine 07/03/2024 2:32 PM TRADE MARK ATTORNEY Other hyperlipidemia TSH Routine 07/03/2024 2:32 PM TRADE MARK ATTORNEY Type 1 diabetes mellitus without complication (HCC) T4, FREE Routine 07/03/2024 2:32 PM TRADE MARK ATTORNEY Type 1 diabetes mellitus without complication (HCC) VITAMIN B12 Routine 07/03/2024 2:32 PM TRADE MARK ATTORNEY PCOS (polycystic ovarian syndrome) HEPATITIS C ANTIBODY Routine 01/21/2024 2:54 PM CDT Positive test PAP WITH REFLEX TO HIGH RISK HPV Routine 04/03/2023 4:28 PM TRADE MARK ATTORNEY Routine Papanicolaou smear from Last 3 Months or Most Recently Relevant to Health Maintenance Results * Endomysial antibody, IgA titer (07/03/2024 2:32 PM TRADE MARK ATTORNEY) Endomysial ab screen IgA w/reflex to titer NEGATIVE NEGATIVE [facility] 07/03/2024 2:32 PM TRADE MARK ATTORNEY 07/03/2024 2:33 PM TRADE MARK ATTORNEY Narrative [facility] - 07/08/2024 5:41 AM CDT FASTING:NO FASTING: NO us Noemi Gilbert DO LAB BLOOD ORDERABLES Fi nal Result [facility] [address] [place] [address] * Tissue transglutaminase IgA (TGG-IgA Ab) (07/03/2024 2:32 PM TRADE MARK ATTORNEY) Tissue transglutaminase ab, IgA <1.0 U/mL [facility]ree[facility]Stephan[facility]Amanda Valente Comment: Value Interpretation ----- <15.0 Antibody not detected > or = 15.0 Antibody detected 07/03/2024 2:32 PM TRADE MARK ATTORNEY 07/03/2024 2:33 PM TRADE MARK ATTORNEY Narrative [facility] - 07/08/2024 5:41 AM CDT FASTING:NO FASTING: NO Gourmet Originsjaime Rutledgeme DO LAB BLOOD ORDERABLES Fi nal Result Performing Organization Address [facility] de Phone Number BlogCNRobert Valente [address] [place] [address] * (ABNORMAL) Albumin Creatinine Ratio, Urine (07/03/2024 2:32 PM TRADE MARK ATTORNEY) Pathologist [facility] Creatinine, ur 114 20 - 275 mg/dL [...] a diagnostic category. Urine 07/03/2024 2:32 PM TRADE MARK ATTORNEY 07/03/2024 2:33 PM TRADE MARK ATTORNEY Narrative [facility] - 07/08/2024 5:41 AM CDT FASTING:NO FASTING: NO Gourmet Originse Vladimir DO LAB URINE ORDERABLES Fi nal Result Performing Organization Address City/[facility]/ZIP Co de Phone Number [facility] [address] [facility] [place] [address] * TSH (07/03/2024 2:32 PM TRADE MARK ATTORNEY) [facility] TSH 1.49 mIU/L [facility] Comment: Reference Range > or = 20 Years 0.40-4.50 Ranges First trimester 0.26-2.66 Second trimester 0.55-2.73 Third trimester 0.43-2.91 Blood 07/03/2024 2:32 PM TRADE MARK ATTORNEY 07/03/2024 2:33 PM TRADE MARK ATTORNEY Narrative [facility] - 07/08/2024 5:41 AM CDT FASTING:NO FASTING: NO TravelZeekyharme LAB BLOOD ORDERABLES Fi nal Result Performing Organization Address [facility] Co de Phone Number [facility] [address] [place] [address] * T4, free (07/03/2024 2:32 PM TRADE MARK ATTORNEY) [facility] Free T4 1.3 0.8 - 1.8 ng/dL [facility] Blood 07/03/2024 2:32 PM TRADE MARK ATTORNEY 07/03/2024 2:33 PM TRADE MARK ATTORNEY Narrative [facility] - 07/08/2024 5:41 AM CDT FASTING:NO FASTING: NO Gourmet Originse Vladimir DO LAB BLOOD ORDERABLES Fi nal Result Performing Organization Address [facility] Co de Phone Number [employer] [facility] [address] [place] [address] * (ABNORMAL) Hemoglobin A1c (07/03/2024 2:32 PM TRADE MARK ATTORNEY) [facility] Hgb A1C 6.6(H) <5.7 % of total Hgb [facility] Comment: For someone without known diabetes, [...] diabetes for children. Blood 07/03/2024 2:32 PM TRADE MARK ATTORNEY 07/03/2024 2:33 PM TRADE MARK ATTORNEY Narrative [facility] - 07/08/2024 5:41 AM CDT FASTING:NO FASTING: NO Noemi Gilbert DO LAB BLOOD ORDERABLES Fi nal Result [facility] [address] [place] [address] * IgA (07/03/2024 2:32 PM TRADE MARK ATTORNEY) Immunoglobulin A 289 47 - 310 mg/dL [facility] 07/03/2024 2:32 PM TRADE MARK ATTORNEY 07/03/2024 2:33 PM TRADE MARK ATTORNEY Narrative [facility] - 07/08/2024 5:41 AM CDT FASTING:NO FASTING: NO Noemi Gilbert DO LAB BLOOD ORDERABLES Fi nal Result Performing Organization Address [facility] Co de Phone Number [facility] [address] [place] [address] * Vitamin B12 (07/03/2024 2:32 PM TRADE MARK ATTORNEY) Pathologist [facility] Vitamin B12 853 200 - 1,100 pg/mL [facility] Blood 07/03/2024 2:32 PM TRADE MARK ATTORNEY 07/03/2024 2:33 PM TRADE MARK ATTORNEY Narrative [facility] - 07/08/2024 5:41 AM CDT FASTING:NO FASTING: NO Noemi Rutledgeme DO LAB BLOOD ORDERABLES Fi nal Result Performing Organization Address [facility] de Phone Number [facility] [address] [place] [address] * Lipid panel (07/03/2024 2:32 PM TRADE MARK ATTORNEY) Pathologist [facility] Cholesterol 174 <200 mg/dL [facility] HDL 82 > OR = 50 mg/dL BreezyRikki Lang Triglycerides 47 <150 mg/dL Mikayla Lang LDL 79 mg/dL (calc) Mikayla [facility]i HealthR[facility]ki Lang Comment: Reference range: <100 Desirable range <100 mg/dL for primary prevention; <70 mg/dL for patients with CHD or diabetic patients with > or = 2 CHD risk factors. LDL-C is now calculated using the Derrick calculation, which is a validated novel method providing better accuracy than the Friedewald equation in the estimation of LDL-C. Parth SS et al. LIAM. 2013;310(19): 9039-5125 (http://education.Madeleine Market/faq/BQE835) Chol/HDL ratio 2.1 <5.0 (calc) Mikayla Lang Non-HDL, (LDL+VLDL) 92 <130 mg/dL (calc) Mikayla Lang Comment: For patients with diabetes plus 1 major ASCVD risk factor, treating to a non-HDL-C goal of <100 mg/dL (LDL-C of <70 mg/dL) is considered a therapeutic option. Blood 07/03/2024 2:32 PM TRADE MARK ATTORNEY 07/03/2024 2:33 PM TRADE MARK ATTORNEY Narrative [facility] - 07/08/2024 5:41 AM CDT FASTING:NO FASTING: NO us Noemi Gilbert DO LAB BLOOD ORDERABLES Fi nal Result MIKAYLA [facility] [address] [place] [address] * Comprehensive metabolic panel (07/03/2024 2:32 PM TRADE MARK ATTORNEY) [facility] Glucose 72 65 - 139 mg/dL Mikayla Lang Comment: Non-fasting reference interval BUN 17 7 - 25 mg/dL Mikayla Lang Creatinine 0.78 0.50 - 0.96 mg/dL Mikayla Lang eGFR 107 > OR = 60 mL/min/1.7 3m2 Mikayla [facility] HealthRikki Lang BUN/creat ratio SEE NOTE: 6 - 22 (calc) Mikayla Lang Comment: Not Reported: BUN and Creatinine are within reference range. Sodium 140 135 - 146 mmol/L Mikayla [facility] HealthR[facility] Lang Potassium, pl 3.8 3.5 - 5.3 mmol/L Net OrangeMia Lang Chloride 103 98 - 110 mmol/L Net OrangeMia Lang CO2 32 20 - 32 mmol/L [facility]zy-Mia Lang Calcium 9.5 8.6 - 10.2 mg/dL Mikayla [facility] Lang Protein, sr 7.1 6.1 - 8.1 g/dL Mikayla [facility] Lang Albumin 4.0 3.6 - 5.1 g/dL Net OrangeMia Lang GLOBULIN 3.1 1.9 - 3.7 g/dL (calc) [facility]-Mia Lang Alb/glob ratio 1.3 1.0 - 2.5 (calc) [facility]-Mia Lang Bilirubin, total 0.3 0.2 - 1.2 mg/dL Net Orange loretta Lang Alk phos 97 31 - 125 U/L Breezy loretta Lang AST 23 10 - 30 U/L Net OrangeMia Lang ALT (SGPT) 22 6 - 29 U/L Net Orange loretta Lang Blood 07/03/2024 2:32 PM TRADE MARK ATTORNEY 07/03/2024 2:33 PM TRADE MARK ATTORNEY [facility] - 07/08/2024 5:41 AM CDT FASTING:NO FASTING: NO Noemi Gilbert DO LAB BLOOD ORDERABLES Fi nal Result MIKAYLA RutledgeS[facility] [address] [place] [address] * Hepatitis C antibody Blood (01/21/2024 2:54 [...] us Emily Castellanos MD LAB MICROBIOLOGY - [facility] ORDERABLES Final Result MALINDA [facility] [address] Department [place] [address] * Pap with reflex to High Risk HPV and Genotyping (Cytology Component) (04/03/2023 4:28 PM TRADE MARK ATTORNEY) Thin prep (Pap test) 04/03/2023 4:28 PM TRADE MARK ATTORNEY 04/08/2023 9:40 AM TRADE MARK ATTORNEY Narrative PATHOLOGY [facility] - 04/09/2023 3:55 PM TRADE MARK ATTORNEY EPIC results best viewed via link to PDF [place] [address] [facility], [place], [place] [address] Tele: Fina Mcpherson MD - Squad Sergeant CYTOLOGY REPORT Note to Patients: This report [...] the details. Patient Name: ROYCE ALEJANDRA Address: [address] [place] [address] Gender: F : 1995 (Age: 27) Service: Location: N : [id number] [facility] #: [id number] Patient Type: [facility] SPECIMEN Taken: 04/03/2023 Reported: 04/09/2023 Physician(s): Emily [...] LAB CYTOLOGY ORDERABL ES Final Result PATHOLOGY [facility] Laboratory Receiving [address] [place], [place] [phone] from Last 3 Months or Most Recently Relevant to Health Maintenance Insurance [facility] CLAIMS [facility] CLAIMS [facility] Address: [place] [id number] [place] [address] Advance Directives For more information, please contact: [phone] * Full Code (Latest Code Status on File) Date Activated Date Inactivated Comments 03/13/2024 5:55 AM 03/13/2024 4:50 PM Full CPR i n case of cardiopulmonary arrest Care Teams Ocular Care Aide Relationship Specialty Start Date End Date No, Physician PCP - General 01/10/23 Cathryn Turpin MD [address] [address] 01/10/23
--- OUTSIDE RECORDS SUMMARY | 2024-08-03 16:23 | XMS_ITS | Continuity of Care Document ---
Author Organization [facility] Address [address] [place] [address] [place] [address] Phone Care Team Providers Care College Advisor Name Role Phone Chang OD, Mart Unavailable Unavailable Procedures Procedure Date Eye Exam, New Patient Refraction SV Poly Carb Sph +/- 7.12 To +/- 20 D Ju Vision Svcs Frames Purchases Lens-Index 1.54-1.79 Glass Advance Directives Directive Yes / No Effective Date File Name No Information Encounters Encounter Description Practice Location Reason(s) For Visit Diagnoses Date Provider Providers Copied on Encounter [facility], [address] [place] [address] [address], [place], [place], [id number], [place] tel:[phone] SEC [facility] No Information 0 Chang OD Mart. [address] [facility] [facility] , [address], [place], [address], [place]. tel:[phone] [facility], [address] [place] [address] [address], [place], [place], [id number], [place] tel:[phone] [facility] No Information [address] [facility] . [address] [facility], [address], [place], [place], [id number], [place]. tel:[phone] Referring Provider: Mart Chang OD Natanael, [address] [facility], [place], [address]. tel:[phone] [place] Provider: Liam Baer, [address] [facility], [place], [address]. tel:[phone] Family History Family Member Type Diagnosis Age At Onset No Information Payers Payer name Insurance type Covered alliance party ID Authormagaly bishop(s) [facility] [id number] Social History Type Description Quantity Date Captured [...]
--- OUTSIDE RECORDS SUMMARY | 2024-08-03 16:23 | XMS_ITS | Clinical Summary ---
Author Organization [facility] Address [facility] [place] [address] Care Team Providers Care Seat Covers Trimmer Name Role Phone Noemi Gilbert DO Primary Care Provider [phone] Allergies Active Allergy Reactions Criticality Noted Date [...] patient's age to complete this topic Insurance [employer] Care Teams Seat Covers Trimmer Relationship Specialty Start Date End Date Noemi Gilbert DO [address] [address] PCP - General INTERNAL MEDICINE 10/31/23
--- OUTSIDE RECORDS SUMMARY | 2024-08-03 16:23 | XMS_ITS | Clinical Summary ---
Author Organization [facility] C Address [address] [place] [address] Care Team Providers Care Director Of Intercollegiate Athletics Name Role Phone No, Physician Primary Care Provider [phone] Cathryn Turpin MD Unavailable [phone] Allergies Active Allergy Reactions Criticality Noted [...] last visit. CW to obtain labs from [facility]. 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 Discussed need for medroxyprogesterone to induce withdrawal bleed. Discussed possible need for ovulation induction with clomid. Assessment & Plan (01/14/2024 11:04 AM CDT): >>ASSESSMENT AND PLAN FOR PCOS (POLYCYSTIC OVARIAN SYNDROME) WRITTEN ON 06/24/2023 7:57 PM BY EMILY NOEL MD See above. >>ASSESSMENT AND PLAN FOR IRREGULAR PERIODS/MENSTRUAL CYCLES WRITTEN ON 06/24/2023 7:54 PM BY EMILY NEOL MD Discussed labs and history consistent with [...] units Pre- weight: 160 lb CGM/pump login The [employer] Single Sign On ([employer]) Username/email: [email or web address] Password: [email or web address] Current regimen: 02/26/2024 Met with [...] ordered [x] First trimester TSH, ordered by clinic coordinator [] ASA starting at 12 weeks gestation, [...] during . -I will reach out to clinic coordinator to request sooner appointment for Eufemia, but [...] the global 02/05 Referring Provider: Emily Noel [phone] [x] or Medicare Insurance [x] Dating Criteria: [...] [] MOC: [] Method of feeding: [] Hand Cloth Cutter: [] PP Depression Discussed: Assessment & Plan [...] Description 07/07/2024 1:00 PM CDT Office Visit [facility] Endocrinology Metabolism and Lipid [address] [place] [address] Noemi Gilbert DO Other hyperlipidemia (Primary Dx); Type 1 diabetes mellitus without complication (HCC); Insulin pump in place; Proteinuria, unspecified type; PCOS (polycystic ovarian syndrome); Goiter 07/05/2024 Results Follow-Up [facility] Endocrinology Metabolism and Lipid [address] [facility] [address] [place] [address] Noemi Gilbert DO 07/02/2024 Orders Only [facility] Endocrinology Metabolism and Lipid [address] [facility] [address] [place] [address] Noemi Alba Natanael Type 1 diabetes mellitus [...] vative Free, Intramuscular 02/26/2007 Influenza, Unspecified 01/28/2023,2012,03/06/2012,01/25 Medical Envelope (J&J) SARS-CoV-2 Vaccination 07/22/2020 Meningococcal MCV4P (Menactra) [...] on file Legal Sex Female 2:10 PM COUNCIL ON AGING DIRECTOR Gender Identity Female 05/17/2020 7:16 PM COUNCIL ON AGING DIRECTOR Sexual Orientation Straight 05/17/2020 7: 16 PM COUNCIL ON AGING DIRECTOR Occupation Industry Job Start Date Job End Date Works for [employer] Not on file Not on file Not [...] CDT Respiratory Rate 18 04/02/2024 8:42 AM COUNCIL ON AGING DIRECTOR Oxygen Saturation 98% 07/07/2024 12: 56 PM [...] TISSUE TRANSGLUTAMINASE, IGA Routine 07/03/2024 2:32 PM COUNCIL ON AGING DIRECTOR ENDOMYSIAL ANTIBODY, IGA TITER Routine 07/03/2024 2:32 PM COUNCIL ON AGING DIRECTOR IGA Routine 07/03/2024 2:32 PM COUNCIL ON AGING DIRECTOR HEMOGLOBIN A1C Routine 07/03/2024 2:32 PM COUNCIL ON AGING DIRECTOR Type 1 diabetes mellitus without complication (HCC) ALBUMIN CREATININE RATIO, URINE Routine 07/03/2024 2:32 PM COUNCIL ON AGING DIRECTOR Type 1 diabetes mellitus without complication (HCC) Proteinuria, unspecified type COMPREHENSIVE METABOLIC PANEL Routine 07/03/2024 2:32 PM COUNCIL ON AGING DIRECTOR Type 1 diabetes mellitus without complication (HCC) LIPID PANEL Routine 07/03/2024 2:32 PM COUNCIL ON AGING DIRECTOR Other hyperlipidemia TSH Routine 07/03/2024 2:32 PM COUNCIL ON AGING DIRECTOR Type 1 diabetes mellitus without complication (HCC) T4, FREE Routine 07/03/2024 2:32 PM COUNCIL ON AGING DIRECTOR Type 1 diabetes mellitus without complication (HCC) VITAMIN B12 Routine 07/03/2024 2:32 PM COUNCIL ON AGING DIRECTOR PCOS (polycystic ovarian syndrome) HEPATITIS C ANTIBODY Routine 01/21/2024 2:54 PM CDT Positive test PAP WITH REFLEX TO HIGH RISK HPV Routine 04/03/2023 4:28 PM COUNCIL ON AGING DIRECTOR Routine Papanicolaou smear from Last 3 Months or Most Recently Relevant to Health Maintenance Results * Endomysial antibody, IgA titer (07/03/2024 2:32 PM COUNCIL ON AGING DIRECTOR) Endomysial ab screen IgA w/reflex to titer NEGATIVE NEGATIVE [facility] Val[facility] 07/03/2024 2:32 PM COUNCIL ON AGING DIRECTOR 07/03/2024 2:33 PM COUNCIL ON AGING DIRECTOR Narrative [facility] - 07/08/2024 5:41 AM CDT FASTING:NO FASTING: NO Noemi Gilbert DO LAB BLOOD ORDERABLES Fi nal Result Performing Organization Address [facility] Co de Phone Number [facility] [address] [place] [address] * Tissue transglutaminase IgA (TGG-IgA Ab) (07/03/2024 2:32 PM COUNCIL ON AGING DIRECTOR) Pathologist [facility] Tissue transglutaminase ab, IgA <1.0 U/mL [facility] [employer] Exchange[facility]mand[facility] Valente Comment: Value Interpretation ----- <15.0 Antibody not detected > or = 15.0 Antibody detected 07/03/2024 2:32 PM COUNCIL ON AGING DIRECTOR 07/03/2024 2:33 PM COUNCIL ON AGING DIRECTOR Narrative [facility] - 07/08/2024 5:41 AM CDT FASTING:NO FASTING: NO Noemi Gilbert LAB BLOOD ORDERABLES nal Result Performing Organization Address [facility] de Phone Number [facility] [address] [place] [address] * (ABNORMAL) Albumin Creatinine Ratio, Urine (07/03/2024 2:32 PM COUNCIL ON AGING DIRECTOR) [facility] Creatinine, ur 114 20 - 275 mg/dL [...] a diagnostic category. Urine 07/03/2024 2:32 PM COUNCIL ON AGING DIRECTOR 07/03/2024 2:33 PM COUNCIL ON AGING DIRECTOR Narrative [facility] - 07/08/2024 5:41 AM CDT FASTING:NO FASTING: NO Comekse Capablue LAB URINE ORDERABLES Fi nal Result Performing Organization Address [facility] Co de Phone Number NutrinoIvanna [address] [place] [address] * TSH (07/03/2024 2:32 PM COUNCIL ON AGING DIRECTOR) [facility] TSH 1.49 mIU/L [facility] Comment: Reference Range > or = 20 Years 0.40-4.50 Ranges First trimester 0.26-2.66 Second trimester 0.55-2.73 Third trimester 0.43-2.91 Blood 07/03/2024 2:32 PM COUNCIL ON AGING DIRECTOR 07/03/2024 2:33 PM COUNCIL ON AGING DIRECTOR Narrative [facility] - 07/08/2024 5:41 AM CDT FASTING:NO FASTING: NO Noemi Sveta Capablue LAB BLOOD ORDERABLES Fi nal Result Performing Organization Address [facility] de Phone Number [facility] [address] [place] [address] * T4, free (07/03/2024 2:32 PM COUNCIL ON AGING DIRECTOR) [facility] Free T4 1.3 0.8 - 1.8 ng/dL [facility] Blood 07/03/2024 2:32 PM COUNCIL ON AGING DIRECTOR 07/03/2024 2:33 PM COUNCIL ON AGING DIRECTOR Narrative [facility] - 07/08/2024 5:41 AM CDT FASTING:NO FASTING: NO Noemi Intelligent Mechatronic Systemsme Automation Alley LAB BLOOD ORDERABLES Fi nal Result Performing Organization Address [facility] Co de Phone Number [facility] [address] [place] [address] * (ABNORMAL) Hemoglobin A1c (07/03/2024 2:32 PM COUNCIL ON AGING DIRECTOR) [facility] Hgb A1C 6.6(H) <5.7 % of total Hgb [facility] Comment: For someone without known diabetes, a [...] diabetes for children. Blood 07/03/2024 2:32 PM COUNCIL ON AGING DIRECTOR 07/03/2024 2:33 PM COUNCIL ON AGING DIRECTOR Narrative [facility] - 07/08/2024 5:41 AM CDT FASTING:NO FASTING: NO Noemi Sveta Vladimir DO LAB BLOOD ORDERABLES Fi nal Result [facility] [address] [place] [address] * IgA (07/03/2024 2:32 PM COUNCIL ON AGING DIRECTOR) Immunoglobulin A 289 47 - 310 mg/dL [facility] 07/03/2024 2:32 PM COUNCIL ON AGING DIRECTOR 07/03/2024 2:33 PM COUNCIL ON AGING DIRECTOR Narrative [facility] - 07/08/2024 5:41 AM CDT FASTING:NO FASTING: NO Noemi Gilbert DO LAB BLOOD ORDERABLES Fi nal Result Performing Organization Address City[facility]/ZIP Co de Phone Number [facility] [address] [place] [address] * Vitamin B12 (07/03/2024 2:32 PM COUNCIL ON AGING DIRECTOR) Vitamin B12 853 200 - 1,100 pg/mL [facility] Blood 07/03/2024 2:32 PM COUNCIL ON AGING DIRECTOR 07/03/2024 2:33 PM COUNCIL ON AGING DIRECTOR Narrative [facility] - 07/08/2024 5:41 AM CDT FASTING:NO FASTING: NO Noemi Svetajaime Rutledgeme DO LAB BLOOD ORDERABLES Fi nal Result [facility] [address] [place] [address] * Lipid panel (07/03/2024 2:32 PM COUNCIL ON AGING DIRECTOR) Cholesterol 174 <200 mg/dL Mikayla Lang HDL 82 > OR = 50 mg/dL Mikayla [employer] Generation SystemsRikki Lang Triglycerides 47 <150 mg/dL Mikayla Lang [...] LDL-C. Parth PATTERSON et al. LIAM. 2013;310(19): 5396-8329 (http://education.DataArt/faq/GIN005) Chol/HDL ratio 2.1 <5.0 (calc) Mikayla Lang Non-HDL, (LDL+VLDL) 92 <130 mg/dL (calc) Mikayla [employer] SystemsRikki Lang Comment: For patients with diabetes plus 1 major ASCVD risk factor, treating to a non-HDL-C goal of <100 mg/dL (LDL-C of <70 mg/dL) is considered a therapeutic option. Blood 07/03/2024 2:32 PM COUNCIL ON AGING DIRECTOR 07/03/2024 2:33 PM COUNCIL ON AGING DIRECTOR Narrative [facility] - 07/08/2024 5:41 AM CDT FASTING:NO FASTING: NO us Noemi Gilbert DO LAB BLOOD ORDERABLES Fi nal Result MIKAYLA [employer] ExchangeFredrick Lang [address] [place] [address] * Comprehensive metabolic panel (07/03/2024 2:32 PM COUNCIL ON AGING DIRECTOR) Glucose 72 65 - 139 mg/dL Mikayla Lang Comment: Non-fasting reference interval BUN 17 7 - 25 mg/dL Mikayla Lang Creatinine 0.78 0.50 - 0.96 mg/dL Mikayla Lang eGFR 107 > OR = 60 mL/min/1.7 3m2 [employer]Mia Lang BUN/creat ratio SEE NOTE: 6 - 22 (calc) Mikayla [employer]-Mia Lang Comment: Not Reported: BUN and Creatinine are within reference range. Sodium 140 135 - 146 mmol/L Mikayla [employer]Mia Lang Potassium, pl 3.8 3.5 - 5.3 mmol/L Mikayla [employer]Mia Lang Chloride 103 98 - 110 mmol/L [facility] [employer]Mia Lang CO2 32 20 - 32 mmol/L [facility] [employer] Lang Calcium 9.5 8.6 - 10.2 mg/dL Mikayla [employer]Mia Lang Protein, sr 7.1 6.1 - 8.1 g/dL [employer] Lang Albumin 4.0 3.6 - 5.1 g/dL Mikayla [employer]Mia Lang GLOBULIN 3.1 1.9 - 3.7 g/dL (calc) Mikayla Rut[facility]-Mia Lang Alb/glob ratio 1.3 1.0 - 2.5 (calc) LinkMeGlobalMia Lang Bilirubin, total 0.3 0.2 - 1.2 mg/dL Mikayla ICVRxMia Lang Alk phos 97 31 - 125 U/L Mikayla [employer]Mia Lang AST 23 10 - 30 U/L LinkMeGlobalMia Lang ALT (SGPT) 22 6 - 29 U/L LinkMeGlobalMia Lang Blood 07/03/2024 2:32 PM COUNCIL ON AGING DIRECTOR 07/03/2024 2:33 PM COUNCIL ON AGING DIRECTOR Narrative [facility] - 07/08/2024 5:41 AM CDT FASTING:NO FASTING: NO us Noemi Gilbert DO LAB BLOOD ORDERABLES Fi nal Result MIKAYLA Marinelli [facility] SystemsPl[facility] CenterPe[facility] [address] [place] [address] * Hepatitis C antibody Blood (01/21/2024 2:54 [...] CDT Emily Noel MD LAB MICROBIOLOGY - [facility] ORDERABLES Final Result [facility] [address] Department [place] [address] * Pap with reflex to High Risk HPV and Genotyping (Cytology Component) (04/03/2023 4:28 PM COUNCIL ON AGING DIRECTOR) Thin prep (Pap test) 04/03/2023 4:28 PM COUNCIL ON AGING DIRECTOR 04/08/2023 9:40 AM COUNCIL ON AGING DIRECTOR Narrative PATHOLOGY [facility] - 04/09/2023 3:55 PM COUNCIL ON AGING DIRECTOR EPIC results best viewed via link to PDF [id number] [place], [place] [address] Tele: Fina Mcpherson MD - Behavior Management Specialist CYTOLOGY REPORT Note to Patients: This report [...] the details. Patient Name: ROYCE GREER Address: [address] [place] [address] Gender: F : 1995 (Age: 27) Service: Location: [facility] #: [id number] Patient Type: [facility] [...] LAB CYTOLOGY ORDERABL ES Final Result PATHOLOGY [facility] Laboratory Receiving [address] [place], [place] [id number] from Last 3 Months or Most Recently Relevant to Health Maintenance Insurance MERGED WITH [facility] CLAIMS [facility] CLAIMS Advance Directives For more information, please contact: [phone] * Full Code (Latest Code Status on File) Date Activated Date Inactivated Comments 03/13/2024 5:55 AM 03/13/2024 4:50 PM Full CPR i n case of cardiopulmonary arrest Care Teams Director Of Intercollegiate Athletics Relationship Specialty Start Date End Date No, Physician PCP - General 01/10/23 Cathryn Turpin MD [address] [facility] [address] [place] [address] 01/10/23
--- OUTSIDE RECORDS SUMMARY | 2024-08-03 16:23 | XMS_ITS | Encounter Summary ---
Author Organization [facility] Facility Care Team Providers Care Perl Developer Name Role Phone Cathryn Turpin MD Primary Care Provider [phone] No, Physician Primary Care Provider [phone] Cathryn Turpin MD Unavailable [phone] Encounter Details Date Type Department Care Team (Latest Contact Info) Description 01/14/2018 Orders Only [facility]INCON[facility] Provider, MD Ange [address] [place] [address] Social History Tobacco Use Types Packs/Day Years Used Date Smoking Tobacco: Never Assessed Comments Unknown Sex and Gender Information Value Date Recorded Sex Assigned at Not on file Legal Sex Female 2:10 PM 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
== END 2024-08-03 16:24 | disposition home or self-care (01) ==
PROVIDERS: Emergency Medicine; Emergency Provider Family Medicine
DX: R07.9 Chest pain, unspecified (principal); E10.9 Type 1 diabetes mellitus without complications; K21.9 Gastro-esophageal reflux disease without esophagitis; R94.31 Abnormal electrocardiogram [ECG] [EKG]
CPT/HCPCS: 36415; 71046; 80053; 83690; 84484; 85025; 85380; 85610; 85730; 93005; 99284